=== PATIENT | male | born 1980 | race Caucasian/White ===

== ENCOUNTER 2018-03-10 15:31 | Inpatient (IN) | payer OTHER, SELFPAY ==
[2018-03-10] VITALS (25 sets, daily range): BP systolic 98–222; BP diastolic 63–136; PULSE 71–111; RESP 11–28; TEMP 36–36.7; O2SAT 93–99; BMI 35.2; BMI 35.3; BMI 39.2
[2018-03-10] MEDS: Metoprolol Tartrate 5 MG/5 ML Vial IV ×2 (15:35→15:43)
[2018-03-10] MEDS: Morphine 4 MG/ML Syringe IV (15:36)
[2018-03-10] MEDS: Ondansetron 4 MG/2 ML Vial IV (15:36)
--- NOTE | 2018-03-10 15:40 | RAD_ITS ---
STUDY: X-RAY CHEST REASON FOR EXAM: Male, 37 years old. Chest pain TECHNIQUE: Single AP portable view of the chest. COMPARISON: None. FINDINGS: The lungs are clear and expanded. There is no demonstrated pleural abnormality. Normal size heart. Normal mediastinum and robel. Normal visualized pulmonary arteries. Normal visualized aortic arch and descending thoracic aorta. Normal visualized thoracic spine. Normal visualized ribs, clavicles, and shoulders. There is no demonstrated abnormality of the visualized soft tissue structures of the upper abdomen. RAD/Chest 1 View (Portable) IMPRESSION: Normal x-ray examination of the chest. Electronically Signed: Jaiden Lea DO at 16:10 EDT Tel , Service support ,
[2018-03-10] MEDS: TICAGRELOR 90 MG TABLET 180 MG PO (15:42)
[2018-03-10] MEDS: 0.9% Normal Saline 1,000 ML 999 ML IV (15:50)
[2018-03-10] MEDS: fentaNYL 100 MCG/2 ML Ampul 50 MCG IV (15:52)
[2018-03-10] MEDS: Heparin Injection (Vial) 5,000 UNIT/ML VIAL 5000 UNIT IV (15:52)
[2018-03-10 16:01] LABS: Absolute Lymphocyte Count 4.04 X10^3/ul (0.83-4.51); Basophil# 0.08 X10^3/uL; Basophil% 0.6 % (0-1); Eosinophil# 0.24 X10^3/uL; Eosinophils% 1.9 % (0-5); Hematocrit 46.4 % (40-54); Hemoglobin 16.4 g/dl (13.0-16.5); Lymphocyte # 4.04 X10^3/ul (4.0); Lymphocyte % 31.9 % (19-41); Mean Corp Hgb Conc 35.3 g/gl (32-36); Mean Corpuscular Hgb 31.3 pg (27.0-32.0); Mean Corpuscular Volume 88.5 fL (80-94); Monocyte# 1.33 X10^3/uL; Monocyte% 10.5 % (0-10); Neutrophil # 6.95 X10^3/uL (2.7-7.7); Neutrophil % 54.8 % (47-70); Platelet Count 250 K/mm3 (150-450); RBC Distribution Width CV 12.9 % (11.6-14.6); Red Blood Count 5.24 M/mm3 (4.6-6.2); White Blood Count 12.7 K/mm3 (4.4-11.0)
[2018-03-10 16:03] LABS: POSITIVE COUNT NO; POSITIVE DIFFERENTIAL NO; POSITIVE MORPHOLOGY NO
--- NOTE | 2018-03-10 16:04 | ED.RN ---
Spoke with 1st cousin Chantelle at [phone]. She was going to contact her daughter Chata Spivey and ask her to come to hospital.
[2018-03-10 16:05] LABS: International Normalized Ratio 1.1; Prothrombin Time (Protime)PT. 13.7 SECONDS (11.7-14.9)
[2018-03-10 16:06] LABS: Partial Thromboplast Time 23.8 Seconds (24.1-36.2)
[2018-03-10 16:25] LABS: Anion Gap 10 (5-15); BUN 12 mg/dL (7-18); BUN/Creat Ratio 9.7 RATIO (10-20); Calcium,Total 9.2 mg/dL (8.5-10.1); Chloride 107 mmol/L (98-107); Creatinine, Serum 1.24 mg/dL (0.70-1.30); EST Glomerular Filtration Rate 69 mL/min (>60); Est Glom Filt Rate - Afr Amer 83 mL/min (>60); Estimated Creatinine Clearance 87.79 ml/min; Glucose 213 mg/dL (74-106); Potassium 3.3 mmol/L (3.5-5.1); Sodium Level 139 mmol/L (136-145)
--- NOTE | 2018-03-10 16:26 | ED.VISSUMM ---
- ER Visit Summary Date of Service: 03/10/18 Chief Complaint: Chest pain History of Present Illness: The patient is a 37 M who is arriving via EMS from work with crushing chest pain. Prehospital STEMI was called. Patient has a history of hypertension and smoking. He states both his mom and his dad have had early onset heart disease. Patient notes some shortness of breath and sweating. No vomiting. He has not had any symptoms like this in the past. Physical Examination: Patient is tachycardic and hypertensive. Gen: Well-nourished well-developed Head: Normocephalic atraumatic Eyes: Perrl EOMI ENT: TMs clear no rhinorrhea moist mucous membranes Neck: Supple no lymphadenopathy no JVD nontender CVS: Regular rate and tachycardic no murmurs normal S1-S2 Respiratory: No distress clear to auscultation bilaterally chest nontender Abdomen: Soft nontender nondistended normal bowel sounds no masses Back: Nontender Extremity: Nontender no edema Skin: Ashen and diaphoretic Neuro: alert orientated ?3 CN II-XII intact normal strength sensation reflexes gait cerebellar Psych: Normal affect normal mood Test Results: Prehospital and emergency department EKG is consistent with STEMI in the inferior leads with reciprocal changes. Chest x-ray shows a normal mediastinal Emergency Department Course and Treatment: Patient received aspirin by EMS. He received IV fluids, morphine, Zofran in the emergency department. Patient also received IV metoprolol (10 mg), Brilinta, and heparin. Heart rate has responded down into the 80s. Dr. Novoa has come to the emergency department will be taking the patient to the heart catheterization lab. Impression: 1. Acute inferior lateral myocardial infarction This note was generated with Vastari dictation software. It may contain incorrect words, spelling, and punctuation that were not noted in review of the chart prior to signing ED Disposition - Plan for ED Patient: Disposition: Acute Care Hospital [facility] Chief Complaint: Chest Pain
--- NOTE | 2018-03-10 16:59 | EKG12_ITS ---
Test Reason : POST STEMI Blood Pressure : / mmHG Vent. Rate : 079 BPM Atrial Rate : 079 BPM P-R Int : 190 ms QRS Dur : 100 ms QT Int : 378 ms P-R-T Axes : 049 062 054 degrees QTc Int : 433 ms Normal sinus rhythm Normal ECG When compared with ECG of 10-MAR-2018 17:27, MANUAL COMPARISON REQUIRED, DATA IS UNCONFIRMED Confirmed by POPEYE CHAMBERLAIN, RENAE ([id number]), editorial writer SARAH LAYTON ([id number]) on 03/15/2018 4:00:42 PM Referred By: Billy Novoa Confirmed By:RENAE NYE MD
--- NOTE | 2018-03-10 17:00 | EKG12_ITS ---
Test Reason : POST STEMI Blood Pressure : / mmHG Vent. Rate : 074 BPM Atrial Rate : 074 BPM P-R Int : 188 ms QRS Dur : 102 ms QT Int : 394 ms P-R-T Axes : 049 069 060 degrees QTc Int : 437 ms Normal sinus rhythm Normal ECG When compared with ECG of 10-MAR-2018 15:32, MANUAL COMPARISON REQUIRED, DATA IS UNCONFIRMED Confirmed by POPEYE CHAMBERLAIN, RENAE ([id number]), editorial specialist SARAH LAYTON ([id number]) on 03/15/2018 4:00:55 PM Referred By: Billy Novoa Confirmed By:RENAE NYE MD
--- NOTE | 2018-03-10 17:11 | CON.PCM_ITS ---
Problem List (1) STEMI (ST elevation myocardial infarction) Status: Acute Reason for Consult Date of Consultation: 03/10/18 History of Present Illness: The patient is a 37 year old M with no significant past medical history. He started having anterior chest discomfort radiating to both shoulders and arms this afternoon. EMS was called. An EKG was done in the field. It showed acute inferior ST elevation myocardial infarction. Subsequently a STEMI alert was called. Patient denies any previous cardiac history. No history of angina. No history of CHF. No palpitations. Denies any previous medical history [] Past Medical History Allergies/Adverse Reactions: Allergies No Known Allergies Allergy (Verified 03/10/18 15:33) Smoking Status: Current every day smoker Review of Systems - Review of Systems General: Denies: Fever, Chills HEENT: Denies: Head Aches Cardiovascular: Reports: Chest Discomfort at Rest - As noted in history of presenting illness. Denies: Orthopnea, PND, Peripheral Edema Respiratory: Denies: Cough, Hemoptysis Gastrointestinal: Denies: Abdominal Discomfort, Jaundice, Hematemesis Neurological: Denies: History of TIA, History of CVA Endocrine: Denies: Heat Intolerance, Cold Intolerance Hematologic/ Lymphatic: Denies: Easy Brusing, Easy Bleeding Subjectve: Appeared anxious. Diaphoretic. In acute distress Objective: Vital Signs Temp Pulse Resp BP Pulse Ox 96.8 F L 87 26 H 200/125 H 99 03/10/18 15:33 03/10/18 15:45 03/10/18 15:45 03/10/18 15:45 03/10/18 15:45 General: Alert, Oriented x 3, Ill Appearing, In Acute Distress, Obese HEENT: Atraumatic, Normocephalic Oral: Moist Mucosa Neck: - - Unable to visualize jugular venous pulse because of body habitus Lungs: Clear to auscultation Cardiovascular: Regular Rhythm, Normal S1, Normal S2 Abdomen: Bowel Sounds Present, Soft Extremities: No edema Neurological: No Focal Motor or Sensory Deficit Psych/Mental Status: Anxious Rhythm: Normal sinus rhythm. EKG: EKG done in the field and then repeated in the emergency room showed changes consistent with acute inferior myocardial infarction with possible posterior extension Assessment/Plan 1. Acute inferior posterior myocardial infarction. Patient was advised emergent coronary angiography and possible revascularization. After obtaining informed consent, patient was brought to the cardiac catheterization lab. Coronary angiography revealed totally occluded mid right posterior lateral ventricular branch. Successful percutaneous revascularization was performed with balloon angioplasty followed by stent placement with a 2.5 x 16 mm Synergy drug-eluting stent. Excellent results were noted with buddhist of ANJALI-3 flow. 0% residual stenosis 2. Continue aspirin lifelong. Ticagrelor treatment for at least one year. Start on beta blockers. Check lipid profile. Start on statins 3. Patient has severe disease in his mid left circumflex and first obtuse marginal branch. Small arteries. Recommend medical management. Patient also has about 60% mid LAD lesion. Recommend outpatient physiological testing with a stress test with imaging modality 4. Normal LV systolic function 5. Lose weight. Patient was counseled 6. Nicotine dependence. Counseled to quit. He however does not seem motivated to do that 7. Medical management as per internal medicine
[2018-03-10] MEDS: 0.9% Normal Saline 1,000 ML 150 ML IV (17:30)
[2018-03-10 17:31] LABS: ACT Activated Clotting Time 285 sec (74-137)
[2018-03-10 17:31] LABS: ACT Activated Clotting Time 290 sec (74-137)
--- NOTE | 2018-03-10 17:31 | CL.I_ITS ---
Patient Name: LAKSHMI GRAHAM Study Date: 03/10/2018 Performing: Billy Novoa MD Ht: 72 inches 183 cm : 1980 Wt: 260.5 lbs 118 kg Age: 37 Gender: male BSA: 2.38 PROCEDURE(S) PERFORMED [id number]/COR/LV [id number], FAYE AND/OR PTCA, ARTERY OR GRAFT, SINGLE VESSEL CLINICAL PROFILE AND CO-MORBIDITIES Heart Failure: None CAD Presentations: STEMI. Symptom onset Date/Time: 03/10/2018 14:25:00 Time Estimated CONCLUSIONS 100% Mid PRLV 50% Prox RCA, 60% distal 60% Mid LAD 80% Mid LCX, 95% Prox OM1. Small vessels LVEF 55% Successful PTCA/FAYE of Mid RPLV using Synergy 2.5x18 mm RECOMMENDATIONS ASA Indefinitley Brilinta for at least 12 months Risk factor modification DESCRIPTION OF PROCEDURE The patient arrived to the procedure lab. The risks and benefits of the procedure as well as a full d escription of our services here and lack of surgical backup were fully explained to the patient and/o r their significant other prior to the catheterization. The Timeout was completed, verifying the mj ect patient and procedure. The patient's procedural site was prepped and draped in the usual fashion. Local anesthetic was given subcutaneously to right radial region with Lidocaine 2%. Using a modified Seldinger technique, arterial access was obtained via the right radial artery, a 6Fr sheath was inse rted.. Right Coronary Artery selective angiography was then performed in multiple views using a 5 Fr . 4.0 [place] catheter. Left Coronary Artery selective angiography was performed in multiple views usin g a 5 Fr. 4.0 [place] catheter. Left Ventriculography was performed in ARRIETA projection using a 5 Fr. Pig tail catheter. LV to AO pullback pressures were then recorded Angiogram performed pre balloon dilatation. Lucky Oysteris 6 fr jr 4 Guide catheter was inserted and engaged into the RCA. runthrough Guide wire was advanced to the RPL. Balloon catheter was advanced across le shirlene in the posterior descending, mid. PTCA balloon inflated at 10 atms for 15 secs. PTCA balloon inf lated at 12 atms for 16 secs. Angiogram performed post balloon dilatation. choice extra support Guide wire was inserted as a karla wire synergy 2.5 x 16 Drug Eluting stent was advanced across the lesion in the post lateral mid on runthrough wire Angiogram performed pre stent deployment. Angiogram perf ormed post stent deployment. nc emerge 2.50 x 15 Balloon catheter was inserted post stent. Angiogram performed post balloon dilatation. The arterial sheath was pulled and a TR Band was applied for hem ostasis CORONARY ANGIOGRAPHY DOMINANCE: Right Dominant LEFT HEART ASSESSMENT Left Ventricular Ejection Fraction: by LV Gram 55 % LVEDP: 20 mmHg Posterior Basal Hypokinesis - Severe LEFT MAIN: No significant disease LEFT ANTERIOR DECENDING ARTERY: 60% Mid LAD CIRCUMFLEX ARTERY: 80% Mid, 95% Prox OM1. Small vessels RIGHT CORONARY ARTERY: 50% Prox, 60% distal. 100% Mid RPLV INTERVENTION INFORMATION LESION SITE: RPL (1st) Lesion Complexity: High/C, thrombus present: Yes, culprit lesion: Yes Pre Stenosis: 100 % Pre intervention ANJALI flow: 0 PROCEDURE: Drug Eluting Stent with pre and post dilatation Post Stenosis: 0 % Post intervention ANJALI flow: 3 Lesion Devices: Gregory Sci EMERGE MR 2.50x20 BALLOON Gregory Sci Synergy MR FAYE 2.50x16 Gregory Sci EMERGE MR 2.50x12 BALLOON Gregory Sci .014 Choice Xtra Support wire 182cm Gregory Sci NC EMERGE MR 2.50x15 BALLOON COMPLICATIONS No Complications PROCEDURE MEDICATIONS Fentanyl 50 mcg IV Versed 2 mg IV Fentanyl 50 mcg IV Fentanyl 50 mcg IV Oxygen: 2 L/min via nasal cannula Angiomax Bolus 18 ml's 03/10/2018 16:20:32 Angiomax 5mg / ml 42 ml/hr IV started 03/10/2018 16:23:18 Nitro 200 mcg IC 03/10/2018 16:45:18 Verapamil 2.5mg, Ntg 100mcgs, given IA 03/10/2018 16:15:17 SUMMARY OF HEMODYNAMIC DATA Time AIR REST ECG 16:07:36 AO 197/101 (141) SA 16:16:41 LV 136/15, 26 16:49:52 LVp 144/11, 28 16:51:02 AOp 143/89 (113) 16:51:07 Signed By Billy Novoa MD On 03/10/2018 17:31:10 Billy Novoa MD
--- NOTE | 2018-03-10 17:39 | PCM.HP.STD ---
Problem List (1) Morbid obesity Status: Acute (2) Nicotine dependence Status: Chronic Qualifiers: Nicotine product type: cigarettes (3) STEMI (ST elevation myocardial infarction) Status: Chronic Qualifiers: Involved coronary artery: other anterior wall coronary artery Qualified Code(s): I21.09 - ST elevation (STEMI) myocardial infarction involving other coronary artery of anterior wall History of Present Illness Date of Admission: 03/10/18 Chief Complaint: Chest pain - 1 day The patient is a 37 year old M with morbid obesity, chronic smoker, otherwise with no significant past medical history comes in with complaints of anterior chest discomfort that radiated to both shoulders and arms. Patient was at work when he started having sudden onset of sharp heavy chest pain, not associated with diaphoresis or nausea or vomiting or dizziness or palpitations. EMS was called, and patient was found to be diaphoretic and complaining of chest pain. EKG in the field showed acute inferior ST elevation AL and a STEMI alert was called Findings in the cardiac cath showed 100% mid right posterior lateral ventricular branch, status post drug-eluting stent 50% proximal RCA, 60% distal RCA, 60% mid LAD, 80% mid left circumflex, 95% proximal obtuse margin, small vessels Past Medical History Past Medical History (Chronic Problems): Chronic Problems STEMI (ST elevation myocardial infarction) (Chronic) Nicotine dependence (Chronic) Allergies No Known Allergies Allergy (Verified 03/10/18 15:33) Surgical History: no surgical history Psychiatric History: No pertinent psych hx Lives: With Family Smoking Status: Heavy Smoker (>10/day) Tobacco Use: Cigarettes Alcohol: Occasional Drugs: None - *Family History Maternal History Items: Heart Disease - young age Paternal History Items: Heart Disease - young age Review of Systems Constitutional: Denies: Anorexia, Chills, Fever, Malaise, Weakness, Weight Change Eyes: Denies: Blurred vision, Cataracts, Conjunctivae Inflammation, Pain, Redness HEENT: Denies: Difficulty Hearing, Difficulty Swallowing, Head Aches, Hearing Changes, Nasal bleeding, Nasal Congestion, Sinus Congestion, Sinus Drainage, Sore Throat, Visual Changes Cardiovascular: Reports: Chest Pain, Chest Pressure, Chest Tightness, Heaviness. Denies: Light Headedness, Orthopnea, Palpitations, Paroxysmal Noc. Dyspnea, Syncope Respiratory: Reports: Shortness of Breath, Shortness of breath at rest, Shortness of breath upon exertion. Denies: Cough, Hemoptysis, Pleuritic Pain, Sputum production Gastrointestinal: Denies: Abdominal Pain, Constipation, Hematemesis, Hematochezia, Nausea, Vomiting Genitourinary: Denies: Dysuria, Frequency, Incontinence Musculoskeletal: Denies: Arm Pain, Back Pain, Joint Pain, Joint stiffness, Joint swelling, Joint Tenderness Skin: Denies: Dryness, Rash, Wounds Neurological: Denies: Balance problems, Difficulty swallowing, Focal weakness, Numbness, Tingling Psychiatric: Denies: Anxiety, Depression, Homicidal Ideations, Suicidal Ideations Hematologic/ Lymphatic: Denies: Easy Bruising, Easy Bleeding VTE Information - Inpt Only VTE Present on Admission: No VTE Pharm Prophylaxis ordered?: Yes Patient Problems: Active and Suspected Problems Morbid obesity (Acute) - Physical Exam General: Alert, Oriented x3, Cooperative, - - in pain at the time of being examined, morbidly obese HEENT: Atraumatic, PERRLA, EOMI, Normocephalic Oral: Moist Mucosa Neck: Supple Lungs: Clear to auscultation, Normal air movement Cardiovascular: Regular rate, Regular Rhythm, Normal S1, Normal S2, No murmurs Abdomen: Bowel Sounds Present, Soft, Non Tender, Non-Distended, No Hepato-splenomegaly Extremities: No edema Skin: No rashes, No breakdown Musculoskeletal: No Tenderness to Palpation of Joints or Extremities Lymphatic: No Cervical, Supraclavicular, or Inguinal Adenopathy Neurological: Cranial nerves II-XII grossly intact, Neuro grossly intact Psych/Mental Status: Normal Affect, Appropriate Vital Signs Temp Pulse Resp BP Pulse Ox 97.4 F L 75 15 140/79 H 99 03/10/18 17:30 03/10/18 17:30 03/10/18 17:30 03/10/18 17:30 03/10/18 17:30 Oxygen Delivery Method Room Air Laboratory Tests Past 24 Hrs 03/10/18 03/10/18 16:48 16:55 Activated Clotting Time 290 H 285 H Assessment/Plan All Active Problems Morbid obesity (Acute) 37 year old M with morbid obesity, chronic smoker, otherwise with no significant past medical history comes in with complaints of anterior chest discomfort that radiated to both shoulders and arms. 1. Acute STEMI, ANJALI score 2(HR more than 100), s/p cardiac cath, Findings in the cardiac cath showed 100% mid right posterior lateral ventricular branch, status post drug-eluting stent, 50% proximal RCA, 60% distal RCA, 60% mid LAD, 80% mid left circumflex, 95% proximal obtuse margin, small vessels Plan: Admit to ICU, monitor on telemetry bed, continue on aspirin, statin, carvedilol, Imdur, Brilinta. 2. Hypertensive emergency,admitting blood pressure of 212/136, will be started on nitro drip per cardiology, will titrate to symptom and also to blood pressure, be started on carvedilol and Imdur, will monitor blood pressure closely 3. Nicotine dependence, will start on nicotine patch and gum as needed 4. Morbid obesity, BMI 39.2, diet and exercise recommended 5. DVT prophylaxis with heparin subcu 6. GI ppx - famotidine bid Code Visit Inpatient E&M: 99862 Init Hosp L3
--- NOTE | 2018-03-10 17:45 | HP.PCM_ITS ---
Problem List (1) Morbid obesity Status: Acute (2) Nicotine dependence Status: Chronic Qualifiers: Nicotine product type: cigarettes (3) STEMI (ST elevation myocardial infarction) Status: Chronic Qualifiers: Involved coronary artery: other anterior wall coronary artery Qualified Code(s): I21.09 - ST elevation (STEMI) myocardial infarction involving other coronary artery of anterior wall History of Present Illness Date of Admission: 03/10/18 Chief Complaint: Chest pain - 1 day The patient is a 37 year old M with morbid obesity, chronic smoker, otherwise with no significant past medical history comes in with complaints of anterior chest discomfort that radiated to both shoulders and arms. Patient was at work when he started having sudden onset of sharp heavy chest pain, not associated with diaphoresis or nausea or vomiting or dizziness or palpitations. EMS was called, and patient was found to be diaphoretic and complaining of chest pain. EKG in the field showed acute inferior ST elevation [place] and a STEMI alert was called Findings in the cardiac cath showed 100% mid right posterior lateral ventricular branch, status post drug-eluting stent 50% proximal RCA, 60% distal RCA, 60% mid LAD, 80% mid left circumflex, 95% proximal obtuse margin, small vessels Past Medical History Past Medical History (Chronic Problems): Chronic Problems STEMI (ST elevation myocardial infarction) (Chronic) Nicotine dependence (Chronic) Allergies No Known Allergies Allergy (Verified 03/10/18 15:33) Surgical History: no surgical history Psychiatric History: No pertinent psych hx Lives: With Family Smoking Status: Heavy Smoker (>10/day) Tobacco Use: Cigarettes Alcohol: Occasional Drugs: None - *Family History Maternal History Items: Heart Disease - young age Paternal History Items: Heart Disease - young age Review of Systems Constitutional: Denies: Anorexia, Chills, Fever, Malaise, Weakness, Weight Change Eyes: Denies: Blurred vision, Cataracts, Conjunctivae Inflammation, Pain, Redness HEENT: Denies: Difficulty Hearing, Difficulty Swallowing, Head Aches, Hearing Changes, Nasal bleeding, Nasal Congestion, Sinus Congestion, Sinus Drainage, Sore Throat, Visual Changes Cardiovascular: Reports: Chest Pain, Chest Pressure, Chest Tightness, Heaviness. Denies: Light Headedness, Orthopnea, Palpitations, Paroxysmal Noc. Dyspnea, Syncope Respiratory: Reports: Shortness of Breath, Shortness of breath at rest, Shortness of breath upon exertion. Denies: Cough, Hemoptysis, Pleuritic Pain, Sputum production Gastrointestinal: Denies: Abdominal Pain, Constipation, Hematemesis, Hematochezia, Nausea, Vomiting Genitourinary: Denies: Dysuria, Frequency, Incontinence Musculoskeletal: Denies: Arm Pain, Back Pain, Joint Pain, Joint stiffness, Joint swelling, Joint Tenderness Skin: Denies: Dryness, Rash, Wounds Neurological: Denies: Balance problems, Difficulty swallowing, Focal weakness, Numbness, Tingling Psychiatric: Denies: Anxiety, Depression, Homicidal Ideations, Suicidal Ideations Hematologic/ Lymphatic: Denies: Easy Bruising, Easy Bleeding VTE Information - Inpt Only VTE Present on Admission: No VTE Pharm Prophylaxis ordered?: Yes Patient Problems: Active and Suspected Problems Morbid obesity (Acute) - Physical Exam General: Alert, Oriented x3, Cooperative, - - in pain at the time of being examined, morbidly obese HEENT: Atraumatic, PERRLA, EOMI, Normocephalic Oral: Moist Mucosa Neck: Supple Lungs: Clear to auscultation, Normal air movement Cardiovascular: Regular rate, Regular Rhythm, Normal S1, Normal S2, No murmurs Abdomen: Bowel Sounds Present, Soft, Non Tender, Non-Distended, No Hepato- splenomegaly Extremities: No edema Skin: No rashes, No breakdown Musculoskeletal: No Tenderness to Palpation of Joints or Extremities Lymphatic: No Cervical, Supraclavicular, or Inguinal Adenopathy Neurological: Cranial nerves II-XII grossly intact, Neuro grossly intact Psych/Mental Status: Normal Affect, Appropriate Vital Signs Temp Pulse Resp BP Pulse Ox 97.4 F L 75 15 140/79 H 99 03/10/18 17:30 03/10/18 17:30 03/10/18 17:30 03/10/18 17:30 03/10/18 17:30 Oxygen Delivery Method Room Air Laboratory Tests Past 24 Hrs 03/10/18 03/10/18 16:48 16:55 Activated Clotting Time 290 H 285 H Assessment/Plan All Active Problems Morbid obesity (Acute) 37 year old M with morbid obesity, chronic smoker, otherwise with no significant past medical history comes in with complaints of anterior chest discomfort that radiated to both shoulders and arms. 1. Acute STEMI, ANJALI score 2(HR more than 100), s/p cardiac cath, Findings in the cardiac cath showed 100% mid right posterior lateral ventricular branch, status post drug-eluting stent, 50% proximal RCA, 60% distal RCA, 60% mid LAD, 80% mid left circumflex, 95% proximal obtuse margin, small vessels Plan: Admit to ICU, monitor on telemetry bed, continue on aspirin, statin, carvedilol, Imdur, Brilinta. 2. Hypertensive emergency,admitting blood pressure of 212/136, will be started on nitro drip per cardiology, will titrate to symptom and also to blood pressure , be started on carvedilol and Imdur, will monitor blood pressure closely 3. Nicotine dependence, will start on nicotine patch and gum as needed 4. Morbid obesity, BMI 39.2, diet and exercise recommended 5. DVT prophylaxis with heparin subcu 6. GI ppx - famotidine bid Code Visit Inpatient E&M: 59627 Init Hosp L3
--- NOTE | 2018-03-10 18:45 | EKG12_ITS ---
Test Reason : STEMI Blood Pressure : / mmHG Vent. Rate : 113 BPM Atrial Rate : 113 BPM P-R Int : 166 ms QRS Dur : 098 ms QT Int : 344 ms P-R-T Axes : 065 069 081 degrees QTc Int : 471 ms Sinus tachycardia Septal infarct , age undetermined Inferolateral injury pattern ACUTE TX / STEMI Abnormal ECG Confirmed by DELFINO CHAMBERLAIN, SOHA ([id number]), pictures editor SARAH LAYTON ([id number]) on 03/22/2018 2:20:19 PM Referred By: Billy Novoa Confirmed By:SOHA SALEH MD
[2018-03-10] MEDS: Famotidine 20mg IV Push Syringe Q12 300 MG IVP (21:41)
[2018-03-10] MEDS: 0.9% NaCl Peripheral Flush Adult/Peds IV (21:41)
[2018-03-10] MEDS: TICAGRELOR 90 MG TABLET PO (21:43)
[2018-03-10] MEDS: Atorvastatin Calcium 40 MG Tablet PO (21:44)
[2018-03-10] MEDS: Carvedilol 3.125 MG TABLET PO (21:44)
[2018-03-11] VITALS (23 sets, daily range): BP systolic 112–151; BP diastolic 68–99; PULSE 66–76; RESP 10–23; TEMP 36.4–36.8; O2SAT 93–98
[2018-03-11 05:10] LABS: Hematocrit 41.8 % (40-54); Hemoglobin 14.2 g/dl (13.0-16.5); Mean Corpuscular Hgb 30.9 pg (27.0-32.0); Mean Corpuscular Volume 91.1 fL (80-94); Mean Platelet Vol. 10.8 fl (6.2-12.0); Platelet Count 192 K/mm3 (150-450); RBC Distribution Width SD 42.5 fl (35.1-43.9); Red Blood Count 4.59 M/mm3 (4.6-6.2); White Blood Count 12.7 K/mm3 (4.4-11.0)
[2018-03-11 05:11] LABS: Scan Indicated on CBC? Y/N NO
[2018-03-11 05:38] LABS: ALB/GLOB Ratio 1.1 RATIO (0.9-2.4); AST(SGOT) 160 U/L (15-37); Alanine Aminotransfer ALT/SGPT 54 U/L (16-61); Albumin, Serum 3.3 g/dL (3.2-5.0); Alkaline Phosphatase 96 U/L (45-117); Anion Gap 9 (5-15); BUN 10 mg/dL (7-18); BUN/Creat Ratio 11.4 RATIO (10-20); Calcium,Total 8.1 mg/dL (8.5-10.1); Chloride 110 mmol/L (98-107); Cholesterol 211 mg/dL (200); Creatinine, Serum 0.88 mg/dL (0.70-1.30); EST Glomerular Filtration Rate 103 mL/min (>60); Est Glom Filt Rate - Afr Amer 124 mL/min (>60); Estimated Creatinine Clearance 109.03 ml/min; Globulin 3.1 g/dL (2.2-4.2); Glucose 103 mg/dL (74-106); High Density Lipoprotein 30 mg/dL; Potassium 3.9 mmol/L (3.5-5.1); Protein, Total 6.4 g/dL (6.4-8.2); Sodium Level 142 mmol/L (136-145); Triglycerides 132 mg/dL; Very Low Density Lipoprotein 26 mg/dL (5-40)
[2018-03-11] MEDS: Isosorbide Mononitrate 30 MG Tablet PO (06:30)
--- NOTE | 2018-03-11 07:29 | PCM.PN.HOSP ---
Patient Problems: Active and Suspected Problems Morbid obesity (Acute) Subjective: Patient was seen and examined. No new complaints. Managed on nitro drip which was switched over 6 AM. Blood pressure is better. Patient is chest pain-free. Denies any dizziness or shortness of breath or palpitations orthopnea or PND. Objective: Physical Exam General: Alert, Oriented x3, Cooperative, morbidly obese HEENT: Atraumatic, PERRLA, EOMI, Normocephalic Oral: Moist Mucosa Neck: Supple Lungs: Clear to auscultation, Normal air movement Cardiovascular: Regular rate, Regular Rhythm, Normal S1, Normal S2, No murmurs Abdomen: Bowel Sounds Present, Soft, Non Tender, Non-Distended, No Hepato-splenomegaly Extremities: No edema Skin: No rashes, No breakdown Musculoskeletal: No Tenderness to Palpation of Joints or Extremities Lymphatic: No Cervical, Supraclavicular, or Inguinal Adenopathy Neurological: Cranial nerves II-XII grossly intact, Neuro grossly intact Psych/Mental Status: Normal Affect, Appropriate Vitals/I&O's: Vital Signs Temp Pulse Resp BP Pulse Ox 98.2 F 73 13 114/73 93 03/11/18 04:00 03/11/18 06:00 03/11/18 06:00 03/11/18 06:00 03/11/18 06:00 Oxygen Delivery Method Room Air Weight: 115.9 kg Body Mass Index (BMI) 39.2 Intake and Output for Last 24 Hours 03/09/18 03/10/18 03/11/18 23:59 23:59 23:59 Intake Total 240 / 240 1322 / 1322 Output Total 650 / 650 700 / 700 Balance -410 / -410 622 / 622 Laboratory Results 03/10/18 16:48: Activated Clotting Time 290 H 03/10/18 16:55: Activated Clotting Time 285 H 03/11/18 04:45: WBC 12.7 H, RBC 4.59 L, Hgb 14.2, Hct 41.8, MCV 91.1, MCH 30.9, MCHC 34.0, RDW 13.0, RDW Differential 42.5, Plt Count 192, MPV 10.8 03/11/18 04:45: Sodium 142, Potassium 3.9, Chloride 110 H, Carbon Dioxide 23.0, Anion Gap 9, BUN 10, Creatinine 0.88, Estim Creat Clear Calc 109.03, Est GFR (MDRD) Af Amer 124, Est GFR (MDRD) Non-Af 103, BUN/Creatinine Ratio 11.4, Glucose 103, Calcium 8.1 L, Total Bilirubin 0.50, AST 160 H, ALT 54, Alkaline Phosphatase 96, Troponin I 34.400 H*, Total Protein 6.4, Albumin 3.3, Globulin 3.1, Albumin/Globulin Ratio 1.1, Triglycerides 132, Cholesterol 211 H, LDL Cholesterol 155 H, VLDL Cholesterol 26, HDL Cholesterol 30 L Current Medications Aspirin (Ecotrin) 81 mg PO DAILY@0800 [facility] Atorvastatin Calcium (Lipitor) 40 mg PO QHS [facility] Last Admin: 03/10/18 21:44 Dose: 40 mg Atropine Sulfate () 0.5 mg IV UD PRN PRN Reason: HR <50 bpm Bisacodyl (Dulcolax) 5 mg PO DAILY PRN PRN PRN Reason: Constipation Carvedilol (Coreg) 3.125 mg PO BID [facility] Last Admin: 03/10/18 21:44 Dose: 3.125 mg Fentanyl Citrate (Sublimaze (100mcg Ampule)) 50 mcg IV Q4H PRN PRN PRN Reason: PAIN Heparin Sodium (Porcine) (Heparin Na) 5,000 unit SC Q12 [facility] Hydralazine HCl (Apresoline Iv) 5 mg IV Q6H PRN PRN PRN Reason: BLOOD PRESSURE Nitroglycerin/Dextrose 25 mg/ (N/A) 250 mls @ 3 mls/hr IV .[id number] [facility] PRN Reason: 5 MCG/MIN Last Admin: 03/10/18 18:43 Dose: 3 mls/hr Famotidine 20 mg/ Sodium (Chloride) 10 mls @ 300 mls/hr IVP Q12 [facility] Last Admin: 03/10/18 21:41 Dose: 300 mls/hr Isosorbide Mononitrate (Imdur) 30 mg PO DAILY [facility] Magnesium Hydroxide (Milk Of Magnesia) 30 ml PO DAILY PRN PRN PRN Reason: Constipation Nicotine (Nicoderm Cq (Pbkc)) 14 mg TRANSDERM. DAILY [facility] Nicotine Polacrilex (Rugby Nicotine (Bkc)) 2 mg PO Q2H PRN PRN PRN Reason: Nicotine Craving Psyllium Hydrophilic Mucilloid (Metamucil) 1 packet PO DAILY PRN PRN PRN Reason: CONSTIPATION Sodium Chloride () 5 - 30 ml IV UD PRN PRN Reason: SALINE FLUSH Last Admin: 03/10/18 21:41 Dose: 10 ml Sodium Chloride () 500 ml IV BOLUS PRN PRN Reason: VASO-VAGAL PROTOCOL Ticagrelor (Brilinta) 90 mg PO BID [facility] Last Admin: 03/10/18 21:43 Dose: 90 mg Medical Necessity - Tobacco Use Smoking Status: Heavy Smoker (>10/day) Tobacco Use: Cigarettes Assessment/Plan All Active Problems Morbid obesity (Acute) 37 year old M with morbid obesity, chronic smoker, hypertension but not on medications comes in with complaints of anterior chest discomfort that radiated to both shoulders and arms, associated with diaphoresis. 1. Acute STEMI, ANJALI score 2 (HR more than 100), s/p cardiac cath, Findings in the cardiac cath showed 100% mid right posterior lateral ventricular branch, status post drug-eluting stent, 50% proximal RCA, 60% distal RCA, 60% mid LAD, 80% mid left circumflex, 95% proximal obtuse margin, small vessels Patient is stable, asymptomatic, off nitro drip, on oral medications, will transfer out of the ICU to a telemetry bed, continue on aspirin, statin, carvedilol, Imdur, Brilinta. 2. Hypertensive emergency,admitting blood pressure of 212/136, improved, off nitro drip, blood pressure is better, continue on carvedilol, Imdur with as needed hydralazine 3. Nicotine dependence, on nicotine patch and gum as needed 4. Morbid obesity, BMI 39.2, diet and exercise recommended 5. DVT prophylaxis with heparin subcu 6. Disposition: Transferred to PCU, possible discharge in 24-48 hours. Code Visit Inpatient E&M: 57359 Subs Hosp L2
[2018-03-11] MEDS: Aspirin E.C. 81 MG Tablet PO (08:28)
--- NOTE | 2018-03-11 08:34 | PCM.PN.CARD ---
Subjectve: Patient seen and evaluated. Appears to be doing well this morning with no chest pain Objective: Vital Signs Temp Pulse Resp BP Pulse Ox 98.2 F 67 17 126/85 H 95 03/11/18 04:00 03/11/18 07:23 03/11/18 07:00 03/11/18 07:00 03/11/18 07:25 Oxygen Delivery Method Room Air Weight: 255 lb 8.252 oz Body Mass Index (BMI) 39.2 Intake and Output for Last 24 Hours 03/09/18 03/10/18 03/11/18 23:59 23:59 23:59 Intake Total 240 / 240 1322 / 1322 Output Total 650 / 650 700 / 700 Balance -410 / -410 622 / 622 General: Awake, Alert, Oriented x 3 HEENT: PERRL, EOMI, Sclera Non Icteric Neck: Supple, Good ROM, No Lymph Node Enlargement Lungs: Clear to auscultation Cardiovascular: Regular Rhythm, Normal S1, Normal S2, No Murmurs, No Rubs, No Gallops Vascular: No Carotid Bruits, Normal Femoral Pulses, Normal Radial Pulses, Normal Dorsalis Pedal Pulse, Normal Posterior Tibial Pulses Abdomen: Bowel Sounds Present, Soft, Non Tender, No HSM, No Organomegaly Extremities: No Cyanosis, No Clubbing, No edema Neurological: No Focal Motor or Sensory Deficit 03/11/18 04:45: WBC 12.7 H, RBC 4.59 L, Hgb 14.2, Hct 41.8, MCV 91.1, MCH 30.9, MCHC 34.0, RDW 13.0, RDW Differential 42.5, Plt Count 192, MPV 10.8 03/11/18 04:45: Sodium 142, Potassium 3.9, Chloride 110 H, Carbon Dioxide 23.0, Anion Gap 9, BUN 10, Creatinine 0.88, Est GFR (MDRD) Af Amer 124, Est GFR (MDRD) Non-Af 103, BUN/Creatinine Ratio 11.4, Glucose 103, Calcium 8.1 L, Total Bilirubin 0.50, Troponin I 34.400 H*, Triglycerides 132, Cholesterol 211 H, LDL Cholesterol 155 H, VLDL Cholesterol 26, HDL Cholesterol 30 L Rhythm: EKG: Normal sinus rhythm with no acute changes Medical Necessity - Tobacco Use Smoking Status: Heavy Smoker (>10/day) Tobacco Use: Cigarettes Assessment/Plan 1. Status post acute inferior myocardial infarction The patient presented with an acute inferior myocardial infarction underwent cardiac catheterization which demonstrated a totally occluded posterolateral vessel which was angioplastied and stented with a drug-eluting stent a 2.5 x 16 Synergy stent. Patient has residual disease noted in the circumflex artery which is diffuse of approximately 70% in the obtuse marginal branch. The left anterior descending artery and diagonal branch has mild disease. Patient appears to be doing well at this time and the plan will be to continue him on aspirin Brilinta, statin, beta-domingo and obtain an echocardiogram in a.m. Patient can be transferred to the progressive care unit Cardiac rehabilitation to be instituted Smoking cessation emphasized Hemoglobin has remained stable with no significant fall Creatinine has remained stable with no significant rise Thank you for allowing me to participate in the care of your patient. Please don't hesitate to call if any issues arise
--- NOTE | 2018-03-11 08:37 | PN.CARD_ITS ---
Subjectve: Patient seen and evaluated. Appears to be doing well this morning with no chest pain Objective: Vital Signs Temp Pulse Resp BP Pulse Ox 98.2 F 67 17 126/85 H 95 03/11/18 04:00 03/11/18 07:23 03/11/18 07:00 03/11/18 07:00 03/11/18 07:25 Oxygen Delivery Method Room Air Weight: 255 lb 8.252 oz Body Mass Index (BMI) 39.2 Intake and Output for Last 24 Hours 03/09/18 03/10/18 03/11/18 23:59 23:59 23:59 Intake Total 240 / 240 1322 / 1322 Output Total 650 / 650 700 / 700 Balance -410 / -410 622 / 622 General: Awake, Alert, Oriented x 3 HEENT: PERRL, EOMI, Sclera Non Icteric Neck: Supple, Good ROM, No Lymph Node Enlargement Lungs: Clear to auscultation Cardiovascular: Regular Rhythm, Normal S1, Normal S2, No Murmurs, No Rubs, No Gallops Vascular: No Carotid Bruits, Normal Femoral Pulses, Normal Radial Pulses, Normal Dorsalis Pedal Pulse, Normal Posterior Tibial Pulses Abdomen: Bowel Sounds Present, Soft, Non Tender, No HSM, No Organomegaly Extremities: No Cyanosis, No Clubbing, No edema Neurological: No Focal Motor or Sensory Deficit 03/11/18 04:45: WBC 12.7 H, RBC 4.59 L, Hgb 14.2, Hct 41.8, MCV 91.1, MCH 30.9, MCHC 34.0, RDW 13.0, RDW Differential 42.5, Plt Count 192, MPV 10.8 03/11/18 04:45: Sodium 142, Potassium 3.9, Chloride 110 H, Carbon Dioxide 23.0, Anion Gap 9, BUN 10, Creatinine 0.88, Est GFR (MDRD) Af Amer 124, Est GFR (MDRD ) Non-Af 103, BUN/Creatinine Ratio 11.4, Glucose 103, Calcium 8.1 L, Total Bilirubin 0.50, Troponin I 34.400 H*, Triglycerides 132, Cholesterol 211 H, LDL Cholesterol 155 H, VLDL Cholesterol 26, HDL Cholesterol 30 L Rhythm: EKG: Normal sinus rhythm with no acute changes Medical Necessity - Tobacco Use Smoking Status: Heavy Smoker (>10/day) Tobacco Use: Cigarettes Assessment/Plan 1. Status post acute inferior myocardial infarction The patient presented with an acute inferior myocardial infarction underwent cardiac catheterization which demonstrated a totally occluded posterolateral vessel which was angioplastied and stented with a drug-eluting stent a 2.5 x 16 Synergy stent. Patient has residual disease noted in the circumflex artery which is diffuse of approximately 70% in the obtuse marginal branch. The left anterior descending artery and diagonal branch has mild disease. Patient appears to be doing well at this time and the plan will be to continue him on aspirin Brilinta, statin, beta-domingo and obtain an echocardiogram in a.m. * Patient can be transferred to the progressive care unit * Cardiac rehabilitation to be instituted * Smoking cessation emphasized * Hemoglobin has remained stable with no significant fall * Creatinine has remained stable with no significant rise * * Thank you for allowing me to participate in the care of your patient. Please don't hesitate to call if any issues arise
[2018-03-11] MEDS: Carvedilol 6.25 MG Tablet PO ×2 (09:29→21:40)
[2018-03-11] MEDS: TICAGRELOR 90 MG TABLET PO ×2 (09:30→21:40)
[2018-03-11] MEDS: Heparin Injection (Vial) 5,000 UNIT/ML VIAL 5000 UNIT SC ×2 (09:30→21:40)
--- NOTE | 2018-03-11 10:00 | EKG12_ITS ---
Test Reason : MORNING EKG Blood Pressure : / mmHG Vent. Rate : 071 BPM Atrial Rate : 071 BPM P-R Int : 186 ms QRS Dur : 092 ms QT Int : 402 ms P-R-T Axes : 051 046 064 degrees QTc Int : 436 ms Normal sinus rhythm Normal ECG When compared with ECG of 10-MAR-2018 18:37, MANUAL COMPARISON REQUIRED, DATA IS UNCONFIRMED Confirmed by POPEYE CHAMBERLAIN, RENAE ([id number]), communications editor SARAH LAYTON ([id number]) on 03/15/2018 4:00:22 PM Referred By: Billy Novoa Confirmed By:RENAE NYE MD
--- NOTE | 2018-03-11 17:00 | EKG12_ITS ---
Test Reason : ROUTINE Blood Pressure : / mmHG Vent. Rate : 070 BPM Atrial Rate : 070 BPM P-R Int : 176 ms QRS Dur : 092 ms QT Int : 398 ms P-R-T Axes : 044 047 058 degrees QTc Int : 429 ms Normal sinus rhythm Normal ECG When compared with ECG of 11-MAR-2018 03:26, MANUAL COMPARISON REQUIRED, DATA IS UNCONFIRMED Confirmed by POPEYE CHAMBERLAIN, RENAE ([id number]), order editor SARAH LAYTON ([id number]) on 03/15/2018 3:56:12 PM Referred By: Billy Novoa Confirmed By:RENAE NYE MD
[2018-03-11] MEDS: Atorvastatin Calcium 40 MG Tablet PO (21:40)
--- NOTE | 2018-03-12 00:01 | ECHOCS_ITS ---
Reason For Study: S/P VT Procedure This was a 2D Doppler, Color Flow transthoracic echocardiogram. Exam performed portable in patient room. Left Ventricle Normal LV size. Left ventricular systolic function is lower limits of normal. The estimated ejection fraction is 50 %. No evidence for diastolic dysfunction. Mild segmental systolic dysfunction (see wall motion). Mid-Posterior: Hypokinetic. Right Ventricle Normal RV size. Normal systolic function. Atria Normal left atrium. Normal right atrium. Mitral Valve Normal mitral valve. Tricuspid Valve Normal tricuspid valve. Mild tricuspid valve insufficiency. Pulmonary artery systolic pressure is 18 mmHg. Aortic Valve Normal aortic valve. Trisinus/trileaflet aortic valve. Pulmonic Valve Normal pulmonic valve. Great Vessels Normal aortic root. The pulmonary artery is normal size. Normal inferior vena cava. Pericardium/Pleural No pericardial effusion. Medication Definity0.3ml given slow IV push to enhance endocardial definition. MMode/2D Measurements & Calculations LVIDd: 5.0 cm IVSd: 1.1 cm Ao root diam: 3.5 cm LVIDs: 3.2 cm LVPWd: 0.96 cm RVDd: 4.2 cm FS: 35.6 % LAV(MOD-bp): 38.9 ml LA A4 area: 14.8 cm2 RA A4 area: 12.7 cm2 LAV(MOD-bp) Indexed: 17.3 ml/m2 LAV(MOD-sp2): 43.0 ml LAV(MOD-sp4): 36.2 ml Doppler Measurements & Calculations MV E max mark: 69.9 cm/sec Lat Peak E' Mark: 10.3 cm/sec Med Peak E' Mark: 6.1 cm/sec MV A max mark: 56.3 cm/sec E/E' lat: 6.8 E/E' med: 11.4 MV E/A: 1.2 Ao V2 max: 102.9 cm/sec LV V1 max: 123.0 cm/sec PA V2 max: 87.9 cm/sec Ao max P.2 mmHg LV V1 max P.0 mmHg Ao V2 mean: 81.3 cm/sec Ao mean P.9 mmHg Ao V2 VTI: 21.4 cm TR max mark: 198.1 cm/sec TR max P.7 mmHg Interpretation Summary Normal LV size. Left ventricular systolic function is lower limits of normal. The estimated ejection fraction is 50 %. No evidence for diastolic dysfunction. Mild segmental systolic dysfunction (see wall motion). Ordering Physician: Billy Novoa Referring Physician: Billy Novoa Performed By: Michelle Jackman, DEMARCO, RVT
[2018-03-12 02:00] VITALS: BP 137/84; PULSE 65; RESP 16; TEMP 36.6; O2SAT 96
[2018-03-12 03:24] VITALS: PULSE 69
[2018-03-12 06:51] VITALS: BP 132/84; PULSE 67; RESP 16; TEMP 36.9; O2SAT 95
--- NOTE | 2018-03-12 07:06 | PCM.PN.CARD ---
Subjectve: Patient seen and evaluated and doing well. Objective: Vital Signs Temp Pulse Resp BP Pulse Ox 98.4 F 67 16 132/84 H 95 03/12/18 06:51 03/12/18 06:51 03/12/18 06:51 03/12/18 06:51 03/12/18 06:51 Oxygen Delivery Method Room Air Weight: 251 lb 5.231 oz Body Mass Index (BMI) 39.2 Intake and Output for Last 24 Hours 03/10/18 03/11/18 03/12/18 23:59 23:59 23:59 Intake Total 240 / 240 2102 / 2102 Output Total 650 / 650 700 / 700 Balance -410 / -410 1402 / 1402 General: Awake, Alert, Oriented x 3 HEENT: PERRL, EOMI, Sclera Non Icteric Neck: Supple, Good ROM, No Lymph Node Enlargement Lungs: Clear to auscultation Cardiovascular: Regular Rhythm, Normal S1, Normal S2, No Murmurs, No Rubs, No Gallops Vascular: No Carotid Bruits, Normal Femoral Pulses, Normal Radial Pulses, Normal Dorsalis Pedal Pulse, Normal Posterior Tibial Pulses Abdomen: Bowel Sounds Present, Soft, Non Tender, No HSM, No Organomegaly Extremities: No Cyanosis, No Clubbing, No edema Neurological: No Focal Motor or Sensory Deficit Rhythm: EKG: ECHO: Stress Test: Cardiac Cath: PCI: CT Surgery: Holter monitor: EPS: PPM: CXR: Chest CT Scan: Medical Necessity - Tobacco Use Smoking Status: Heavy Smoker (>10/day) Tobacco Use: Cigarettes Assessment/Plan 1. Status post acute inferior myocardial infarction day 3 The patient presented with an acute inferior myocardial infarction underwent cardiac catheterization which demonstrated a totally occluded posterolateral vessel which was angioplastied and stented with a drug-eluting stent a 2.5 x 16 Synergy stent. Patient has residual disease noted in the circumflex artery which is diffuse of approximately 70% in the obtuse marginal branch. The left anterior descending artery and diagonal branch has mild disease. Patient appears to be doing well at this time and the plan will be to continue him on aspirin Brilinta, statin, beta-domingo and obtain an echocardiogram in a.m. Cardiac rehabilitation to be instituted Smoking cessation emphasized Hemoglobin has remained stable with no significant fall Creatinine has remained stable with no significant rise Patient can be discharged later today after echocardiogram and follow-up with me in the office.Above discussed with patient. Thank you for allowing me to participate in the care of your patient. Please don't hesitate to call if any issues arise
[2018-03-12 07:08] VITALS: PULSE 58
--- NOTE | 2018-03-12 07:09 | PN.CARD_ITS ---
Subjectve: Patient seen and evaluated and doing well. Objective: Vital Signs Temp Pulse Resp BP Pulse Ox 98.4 F 67 16 132/84 H 95 03/12/18 06:51 03/12/18 06:51 03/12/18 06:51 03/12/18 06:51 03/12/18 06:51 Oxygen Delivery Method Room Air Weight: 251 lb 5.231 oz Body Mass Index (BMI) 39.2 Intake and Output for Last 24 Hours 03/10/18 03/11/18 03/12/18 23:59 23:59 23:59 Intake Total 240 / 240 2102 / 2102 Output Total 650 / 650 700 / 700 Balance -410 / -410 1402 / 1402 General: Awake, Alert, Oriented x 3 HEENT: PERRL, EOMI, Sclera Non Icteric Neck: Supple, Good ROM, No Lymph Node Enlargement Lungs: Clear to auscultation Cardiovascular: Regular Rhythm, Normal S1, Normal S2, No Murmurs, No Rubs, No Gallops Vascular: No Carotid Bruits, Normal Femoral Pulses, Normal Radial Pulses, Normal Dorsalis Pedal Pulse, Normal Posterior Tibial Pulses Abdomen: Bowel Sounds Present, Soft, Non Tender, No HSM, No Organomegaly Extremities: No Cyanosis, No Clubbing, No edema Neurological: No Focal Motor or Sensory Deficit Rhythm: EKG: ECHO: Stress Test: Cardiac Cath: PCI: CT Surgery: Holter monitor: EPS: PPM: CXR: Chest CT Scan: Medical Necessity - Tobacco Use Smoking Status: Heavy Smoker (>10/day) Tobacco Use: Cigarettes Assessment/Plan 1. Status post acute inferior myocardial infarction day 3 The patient presented with an acute inferior myocardial infarction underwent cardiac catheterization which demonstrated a totally occluded posterolateral vessel which was angioplastied and stented with a drug-eluting stent a 2.5 x 16 Synergy stent. Patient has residual disease noted in the circumflex artery which is diffuse of approximately 70% in the obtuse marginal branch. The left anterior descending artery and diagonal branch has mild disease. Patient appears to be doing well at this time and the plan will be to continue him on aspirin Brilinta, statin, beta-domingo and obtain an echocardiogram in a.m. * Cardiac rehabilitation to be instituted * Smoking cessation emphasized * Hemoglobin has remained stable with no significant fall * Creatinine has remained stable with no significant rise * Patient can be discharged later today after echocardiogram and follow-up with me in the office.Above discussed with patient. * Thank you for allowing me to participate in the care of your patient. Please don't hesitate to call if any issues arise
[2018-03-12] MEDS: Isosorbide Mononitrate 30 MG Tablet PO (09:34)
[2018-03-12] MEDS: TICAGRELOR 90 MG TABLET PO (09:34)
[2018-03-12] MEDS: Aspirin E.C. 81 MG Tablet PO (09:34)
[2018-03-12] MEDS: Carvedilol 6.25 MG Tablet PO (09:35)
[2018-03-12 09:36] VITALS: BP 148/86; PULSE 67; RESP 16; TEMP 36.7; O2SAT 98
--- NOTE | 2018-03-12 10:00 | EKG12_ITS ---
Test Reason : AM Blood Pressure : / mmHG Vent. Rate : 065 BPM Atrial Rate : 065 BPM P-R Int : 170 ms QRS Dur : 094 ms QT Int : 400 ms P-R-T Axes : 042 051 040 degrees QTc Int : 416 ms Normal sinus rhythm Normal ECG When compared with ECG of 11-MAR-2018 16:26, MANUAL COMPARISON REQUIRED, DATA IS UNCONFIRMED Confirmed by POPEYE CHAMBERLAIN, RENAE ([id number]), managing editor SARAH LAYTON ([id number]) on 03/15/2018 3:54:52 PM Referred By: Billy Novoa Confirmed By:RENAE NYE MD
--- NOTE | 2018-03-12 10:04 | CASEMGMT ---
Addendum entered by Marleny Collier 03/12/18 14:11: Pt was provided with Advanced Directive paperwork prior to discharge. [facility] Original Note: Face to Face with patient for initial transition planning/care coordination assessment. CAROL TO introduced self and role at [facility], pt voices understanding and consents to assessment at this time. Pt is sitting up in bed in no distress at this time. Pt is A/O x4 at this time and answers all questions appropriately at this time. Care providers, pharmacy, and demographics verified. See attached link. Pt voices no further concerns/needs at this time. Advised pt to ask for CM if any further questions/concerns/needs arise, voices understanding. Pt declined list of local PCP's but did want advanced directive paperwork but chose not to complete it at this time. PLAN: Home [facility]
[2018-03-12 11:07] VITALS: PULSE 72
--- NOTE | 2018-03-12 11:49 | DCINST_ITS ---
- Discharge Diagnoses Current Active Problems: Current Active and Chronic Problems (Last Updated 03/12/18 @ 08:02 by Shannon Nguyen) STEMI (ST elevation myocardial infarction) (Chronic) Morbid obesity (Chronic) Nicotine dependence (Chronic) You will use the following diet at home:: Calorie/Carbohydrate Controlled ( specify 1200, 1400, etc) - 2000 jacqueline / day, Cardiac Your food should be the consistency of: Regular Your liquids should be the consistency of: Regular/Thin Discharge Activity: Return to Normal Activity Additional Instructions: Activity limitations as directed by cardiac rehab services Allergies/Adverse Reactions: Allergies No Known Allergies Allergy (Verified 03/10/18 15:33) Medications to take at Discharge Aspirin E.C. [Ecotrin] 81 mg PO DAILY@0800 tablet 03/12/18 Atorvastatin Calcium [Lipitor] 40 mg PO QHS #30 tab 03/12/18 Carvedilol [Coreg (Beta Tamara)] 6.25 mg PO BID #60 tab 03/12/18 Isosorbide Mononitrate [Imdur] 30 mg PO DAILY #30 tab 03/12/18 Ticagrelor [Brilinta] 90 mg PO BID #60 tab 03/12/18 The following prescriptions were given: Atorvastatin Calcium [Lipitor] 40 mg PO QHS #30 tab Carvedilol [Coreg (Beta Tamara)] 6.25 mg PO BID #60 tab Isosorbide Mononitrate [Imdur] 30 mg PO DAILY #30 tab Ticagrelor [Brilinta] 90 mg PO BID #60 tab Primary Care Physician: Care Physician,No Primary [Primary Care Provider] - Please follow up with your Primary Care Physician in: 1-2 weeks Test Results: Please Follow Up With: Jeromy Traylor MD When: 1-2 weeks Proposed Discharge Date: 03/12/18
--- NOTE | 2018-03-12 13:00 | PCM.DC.SUM ---
<Kiran Brown - Last Filed: 03/12/18 13:00> Discharge Date and Diagnosis Date of Admission: 03/10/18 Date of Discharge: 03/12/18 - Primary Discharge Diagnosis STEMI / CAD - acute inferior WI Posterolateral vessel s/p angioplasty HTN emergency resolved Nicotine Abuse Obesity - Secondary Discharge Diagnosis Chronic Problems (Last Updated 03/12/18 @ 08:02 by Shannon Nguyen) STEMI (ST elevation myocardial infarction) (Chronic) Morbid obesity (Chronic) Nicotine dependence (Chronic) Hospital Course and Treatment Imaging Results: RAD/Chest 1 View (Portable) IMPRESSION: Normal x-ray examination of the chest. Echo: Interpretation Summary Normal LV size. Left ventricular systolic function is lower limits of normal. The estimated ejection fraction is 50 %. No evidence for diastolic dysfunction. Mild segmental systolic dysfunction (see wall motion). Cardiology - [facility] Operations: None Procedures: 2-D Echocardiogram, Cardiac catheterization Summary of Care Provided: Physical exam on day of discharge: General: Resting comfortably NAD Psych: A/Ox3 normal affect HEENT: PEARRLA AT NC Neck: Supple NT CV: RRR no m/t/r/g/h Resp: CTA Abd: [id number] Soft NT no guarding or rigidity, obese Ext: DP2+= no edema Skin: W/D normal turgor Lymph/Heme: No active bleeding or adenopathy Neuro: CN2-12 intact Hospital course: The patient is a 37 year old M with a hx of obesity and nicotine abuse, not on any medications, and a family hx significant for CAD who presented to the ER with chest pain x 1 day described as both sharp and heavy, located in the anterior chest radiating into both shoulders and arms. EKG showed acute inferior STEMI. He was taken to the powerhouse laborer by Dr. Novoa and had 100% occlusion of the mid right posterior lateral ventricular branch and a drug eluting stent was placed. Halso he had 50% proximal RCA, 60% distal RCA, 60% mid LAD, 80% mid left circumflex, 95% proximal obtuse margin small vessels. He was placed on aspirin, statin, carvedilol, Imdur, and Brilinta. He was also placed on therapeutic Lovenox and nitro drip. He had improvement in his hypertension. He was given nicotine patch and gum for nicotine withdrawal. He was taken to the PCU and monitored on telemetry. He had an echocardiogram with results as above. He remained chest pain-free and medically stable after the heart catheterization. He was given prescriptions for his new medications. We strongly advised smoking cessation multiple times and he did agree to take a prescription for the nicotine patch. While here choleseterol was checked - LDL 155, total 211, HDL 30. We also strongly encouraged him to follow-up with a family medicine doctor which she was not doing. We advised him to follow-up with cardiology as an outpatient that he would need cardiac rehab, and that he will have his physical activity directed by cardiac rehab. With his obesity and coronary disease I have advised a cardiac and calorie controlled diet. He was discharged home in stable condition. This patient was seen by Kiran Brown PA-C under the supervision of Doctor Rodrigues. [] Discharge Diet: Low fat/ Low Cholesterol, 2000 Calorie Control Diet, 2000 mg Sodium Diet Discharge Activity: Return to Normal Activity Home Medications: Medications to take at Discharge Aspirin E.C. [Ecotrin] 81 mg PO DAILY@0800 tablet 03/12/18 Atorvastatin Calcium [Lipitor] 40 mg PO QHS #30 tab 03/12/18 Carvedilol [Coreg (Beta Tamara)] 6.25 mg PO BID #60 tab 03/12/18 Isosorbide Mononitrate [Imdur] 30 mg PO DAILY #30 tab 03/12/18 Nicotine [Nicoderm Cq (PBKC)] 21 mg TRANSDERM. DAILY #42 patch 03/12/18 Ticagrelor [Brilinta] 90 mg PO BID #60 tab 03/12/18 Following Prescrptions Were Given to Patient: Atorvastatin Calcium [Lipitor] 40 mg PO QHS #30 tab Isosorbide Mononitrate [Imdur] 30 mg PO DAILY #30 tab Nicotine [Nicoderm Cq (PBKC)] 21 mg TRANSDERM. DAILY #42 patch Carvedilol [Coreg (Beta Tamara)] 6.25 mg PO BID #60 tab Ticagrelor [Brilinta] 90 mg PO BID #60 tab Primary Care Physician: Care Physician,No Primary [Primary Care Provider] - Please follow up with your Primary Care Physician in: 1-2 weeks Please Follow Up With: Jeromy Traylor MD - Cardiac rehab as directed When: 1-2 weeks Disposition: Home Minutes spent on discharge:: 35 Patient Condition:: Stable Medical Necessity - Tobacco Use Smoking Status: Heavy Smoker (>10/day) Tobacco Use: Cigarettes Meaningful Use Info Meaningful Use Diagnoses (Choose all that apply): AMI - AMI Aspirin given w/in 24hrs of arrival?: Yes ASA at discharge?: Yes Statins at discharge?: Yes Bethel/ARB at discharge?: No Reason Bethel/ARB not ordered:: Drug Interaction Beta Tamara at discharge?: Yes Done w/ Acute WI measure.: Yes - CHF Documented LVEF (%): 50 <Frida Rodrigues - Last Filed: 03/12/18 16:25> Discharge Date and Diagnosis - Secondary Discharge Diagnosis Chronic Problems (Last Updated 03/12/18 @ 08:02 by Shannon Nguyen) STEMI (ST elevation myocardial infarction) (Chronic) Morbid obesity (Chronic) Nicotine dependence (Chronic) Hospital Course and Treatment Summary of Care Provided: The patient is a 37 year old M [] Code Visit Inpatient E&M: 45114 Disch Hosp
--- NOTE | 2018-03-12 13:11 | DS.PCM_ITS ---
<Kiran Brown - Last Filed: 03/12/18 13:00> Discharge Date and Diagnosis Date of Admission: 03/10/18 Date of Discharge: 03/12/18 - Primary Discharge Diagnosis STEMI / CAD - acute inferior [place] Posterolateral vessel s/p angioplasty HTN emergency resolved Nicotine Abuse Obesity - Secondary Discharge Diagnosis Chronic Problems (Last Updated 03/12/18 @ 08:02 by Shannon Nguyen) STEMI (ST elevation myocardial infarction) (Chronic) Morbid obesity (Chronic) Nicotine dependence (Chronic) Hospital Course and Treatment Imaging Results: RAD/Chest 1 View (Portable) IMPRESSION: Normal x-ray examination of the chest. Echo: Interpretation Summary Normal LV size. Left ventricular systolic function is lower limits of normal. The estimated ejection fraction is 50 %. No evidence for diastolic dysfunction. Mild segmental systolic dysfunction (see wall motion). Cardiology - [facility] Operations: None Procedures: 2-D Echocardiogram, Cardiac catheterization Summary of Care Provided: Physical exam on day of discharge: General: Resting comfortably NAD Psych: A/Ox3 normal affect HEENT: PEARRLA AT NC Neck: Supple NT CV: RRR no m/t/r/g/h Resp: CTA Abd: [id number] Soft NT no guarding or rigidity, obese Ext: DP2+= no edema Skin: W/D normal turgor Lymph/Heme: No active bleeding or adenopathy Neuro: CN2-12 intact Hospital course: The patient is a 37 year old M with a hx of obesity and nicotine abuse, not on any medications, and a family hx significant for CAD who presented to the ER with chest pain x 1 day described as both sharp and heavy, located in the anterior chest radiating into both shoulders and arms. EKG showed acute inferior STEMI. He was taken to the cathode ray tube salvage processor by Dr. Novoa and had 100% occlusion of the mid right posterior lateral ventricular branch and a drug eluting stent was placed. Halso he had 50% proximal RCA, 60% distal RCA, 60% mid LAD, 80% mid left circumflex, 95% proximal obtuse margin small vessels. He was placed on aspirin, statin, carvedilol, Imdur, and Brilinta. He was also placed on therapeutic Lovenox and nitro drip. He had improvement in his hypertension. He was given nicotine patch and gum for nicotine withdrawal. He was taken to the PCU and monitored on telemetry. He had an echocardiogram with results as above. He remained chest pain-free and medically stable after the heart catheterization. He was given prescriptions for his new medications. We strongly advised smoking cessation multiple times and he did agree to take a prescription for the nicotine patch. While here choleseterol was checked - LDL 155, total 211, HDL 30. We also strongly encouraged him to follow-up with a family medicine doctor which she was not doing. We advised him to follow-up with cardiology as an outpatient that he would need cardiac rehab, and that he will have his physical activity directed by cardiac rehab. With his obesity and coronary disease I have advised a cardiac and calorie controlled diet. He was discharged home in stable condition. This patient was seen by Kiran Brown PA-C under the supervision of Doctor Rodrigues. [] Discharge Diet: Low fat/ Low Cholesterol, 2000 Calorie Control Diet, 2000 mg Sodium Diet Discharge Activity: Return to Normal Activity Home Medications: Medications to take at Discharge Aspirin E.C. [Ecotrin] 81 mg PO DAILY@0800 tablet 03/12/18 Atorvastatin Calcium [Lipitor] 40 mg PO QHS #30 tab 03/12/18 Carvedilol [Coreg (Beta Tamara)] 6.25 mg PO BID #60 tab 03/12/18 Isosorbide Mononitrate [Imdur] 30 mg PO DAILY #30 tab 03/12/18 Nicotine [Nicoderm Cq (PBKC)] 21 mg TRANSDERM. DAILY #42 patch 03/12/18 Ticagrelor [Brilinta] 90 mg PO BID #60 tab 03/12/18 Following Prescrptions Were Given to Patient: Atorvastatin Calcium [Lipitor] 40 mg PO QHS #30 tab Isosorbide Mononitrate [Imdur] 30 mg PO DAILY #30 tab Nicotine [Nicoderm Cq (PBKC)] 21 mg TRANSDERM. DAILY #42 patch Carvedilol [Coreg (Beta Tamara)] 6.25 mg PO BID #60 tab Ticagrelor [Brilinta] 90 mg PO BID #60 tab Primary Care Physician: Care Physician,No Primary [Primary Care Provider] - Please follow up with your Primary Care Physician in: 1-2 weeks Please Follow Up With: Jeromy Traylor MD - Cardiac rehab as directed When: 1-2 weeks Disposition: Home Minutes spent on discharge:: 35 Patient Condition:: Stable Medical Necessity - Tobacco Use Smoking Status: Heavy Smoker (>10/day) Tobacco Use: Cigarettes Meaningful Use Info Meaningful Use Diagnoses (Choose all that apply): AMI - AMI Aspirin given w/in 24hrs of arrival?: Yes ASA at discharge?: Yes Statins at discharge?: Yes Bethel/ARB at discharge?: No Reason Bethel/ARB not ordered:: Drug Interaction Beta Tamara at discharge?: Yes Done w/ Acute MA measure.: Yes - CHF Documented LVEF (%): 50 <Frida Rodrigues - Last Filed: 03/12/18 16:25> Discharge Date and Diagnosis - Secondary Discharge Diagnosis Chronic Problems (Last Updated 03/12/18 @ 08:02 by Shannon Nguyen) STEMI (ST elevation myocardial infarction) (Chronic) Morbid obesity (Chronic) Nicotine dependence (Chronic) Hospital Course and Treatment Summary of Care Provided: The patient is a 37 year old M [] Code Visit Inpatient E&M: 96841 Disch Hosp
--- NOTE | 2018-03-12 13:52 | CRPHASE1 ---
Patient Data/Charges Phase II Referral:: [facility] - Phone call to pt. Booklet to be sent Risk Factors/Lifestyle Smoking Status: Current every day smoker Hx Obesity: Yes Laboratory Values: Cardiac Rehab Phase I Labs Triglycerides 132 mg/dL (-199) 03/11/18 04:45 Cholesterol 211 mg/dL (200) H 03/11/18 04:45 LDL Cholesterol 155 mg/dL (0-130) H 03/11/18 04:45 HDL Cholesterol 30 mg/dL (40-) L 03/11/18 04:45 Hospital Course Presenting Symptoms:: STEMI Medical/Surgical History [place]:: Yes PTCA:: Yes
--- NOTE | 2018-03-12 13:55 | CRPHASE1_ITS ---
Patient Data/Charges Phase II Referral:: [facility] - Phone call to pt. Booklet to be sent Risk Factors/Lifestyle Smoking Status: Current every day smoker Hx Obesity: Yes Laboratory Values: Cardiac Rehab Phase I Labs Triglycerides 132 mg/dL (-199) 03/11/18 04:45 Cholesterol 211 mg/dL (200) H 03/11/18 04:45 LDL Cholesterol 155 mg/dL (0-130) H 03/11/18 04:45 HDL Cholesterol 30 mg/dL (40-) L 03/11/18 04:45 Hospital Course Presenting Symptoms:: STEMI Medical/Surgical History [place]:: Yes PTCA:: Yes
--- NOTE | 2018-03-12 13:57 | CRPH1.INST_ITS ---
General Education CAD and cardiac anatomy and function:: Needs reinforcement Explanation of diagnoses and procedures:: Needs reinforcement Sign/Symptoms of OH:: Needs reinforcement Antiplatelet therapy: Needs reinforcement Proper use of NTG-SL: Not instructed Emergency procedures and activation of EMS: Needs reinforcement Compliance of all prescribed medications: Needs reinforcement Smoking Patient Nicotine/Smoking Risk Factors Are:: Cigarettes Recommendations Include:: Smoking cessation strategies/Smoking packet Nicotine/Smoking Response Code:: Needs reinforcement Dyslipidemia Patient Dyslipidemia Risk Factors Are:: Total Cholesterol Recommendations Include:: Lipid profile provided Dyslipidemia Response Code:: Needs reinforcement Overweight/Obesity Patient Overweight/Obesity Risk Factors Are:: Obesity - > or = 30 Recommendations Include:: Weight loss of 5-10%, Reduced calorie diet, Exercise 5 -7 times/week Overweight/Obesity:: Needs reinforcement Hypertension Recommendations Include:: Maintain BP <130/85, BP <130/80 if diabetic, DASH dietary guidelines, Decrease/maintain normal body weight, Moderation of ETOH Hypertension:: Needs reinforcement Heart Disease Patient Heart Disease Risk Factors Are:: Family history of heart disease < 65 years old Heart Disease Response Code:: Needs reinforcement Diabetes Diabetes:: Not instructed Metabolic Syndrome Patient Metabolic Syndrome Risk Factors Are [3 of 5]:: Fasting blood sugar > 100 mg/dL Metabolic Syndrome Response Code:: Needs reinforcement Sedentary Patient Sedentary Risk Factors Are:: Lack of regular exercise Recommendations Include:: Aerobic exercise 5-7 times/week for 20-30 minutes continuously Sedentary Response Code:: Needs reinforcement Stress Stress Response Code:: Not instructed
[2018-03-13 07:20] LABS: ACT Activated Clotting Time 147 sec (74-137)
== END 2018-03-12 13:10 | disposition home or self-care (01) | DRG 247 ==
LOC: ED 16:04 → ICU 16:19 → PCU 03-11 13:50 → ICU 03-13 12:53
PROVIDERS: Emergency Medicine; Admitting Provider Internal Medicine; Emergency Provider Emergency Medicine; Visit Provider Internal Medicine Cardiovascular Disease
DX: I21.19 ST elevation (STEMI) myocardial infarction involving other coronary artery of inferior wall (principal); I16.1 Hypertensive emergency; E66.01 Morbid (severe) obesity due to excess calories; Z68.39 Body mass index [BMI] 39.0-39.9, adult; F17.210 Nicotine dependence, cigarettes, uncomplicated; I25.10 Atherosclerotic heart disease of native coronary artery without angina pectoris
CPT/HCPCS: 71045; 80048; 80053; 80061; 84484; 85025; 85027; 85347; 85610; 85730; 92941; 93005; 93306; 93458; 99152; 99153; 99285; 99406; J7030; Q9957; Q9967; A4216; C1725; C1769; C1874; C1887; C1894; C8929; C9606; J0583; J2405; J3490

== ENCOUNTER → 2018-03-27 06:28 | Outpatient (CLI) | payer OTHER, SELFPAY ==
--- NOTE | 2018-03-27 07:56 | PCM.CR.HP2 ---
CR - History & Physical - General Arrival date:: 03/27/18 Arrival time:: 07:58 Date of Referral:: 03/12/18 Date of CR Evaluation:: 03/27/18 Referring Physician: Dr. Jeromy Traylor Primary Diagnosis: STEMI, S/P coronary stent - History of Present Cardiac Event Onset Date: Enter Onset Date of cardiac illnesses in Comment field below Acute Myocardial Infarction within 12 months:: Yes - 03/10/2018 PTCA or coronary stenting:: Yes - 03/10/2018 Type of Symptoms:: Arrived to ER via EMS from work w/crushing chest pain and arm; patient history of heavy smoker, obese, hypertension. Both parents had early onset of heart disease. Interventions with present event:: Emergent STEMI PCI intervention Were there any complications?: none - Medications Home Medications: Ambulatory Orders Medication Instructions Recorded Aspirin E.C. [Ecotrin] 81 mg PO DAILY@0800 tab 03/12/18 atorvastatin 40 mg tablet 40 mg PO QHS #30 tab 03/16/18 carvedilol 6.25 mg tablet 6.25 mg PO BID #60 tab 03/16/18 isosorbide mononitrate ER 30 mg 30 mg PO DAILY #30 tab 03/16/18 tablet,extended release 24 hr ticagrelor 90 mg tablet 90 mg PO BID #60 tab 03/16/18 - Allergies Allergies/Adverse Reactions: Allergies No Known Allergies Allergy (Verified 03/16/18 15:37) - Sleep Disorder Evaluation Hx of Sleep Apnea: Yes Do you snore loudly (louder than talking or can be heard through closed doors)?: Yes Do you often feel tired/ fatigued/ sleepy during daytime?: Yes Has anyone observed you stop breathing during sleep?: No History of Hypertension (for STOP score): Yes - Has MARILYN but no machine at home. STOP Results: Positive Advanced Directives - Advanced Directives Power of Head Of Mathematics: No Living Will: No Advance Directives Information Provided: Yes Advance Directives on File: No DNR Order?:: No - MOLST See MOLST form: No Past Medical History - Past Medical Illness Medical History: Past Medical History (Last Reviewed 03/16/18 @ 15:50 by Jeromy Traylor MD) Atherosclerosis of coronary artery of standing rock heart without angina pectoris (Acute) I25.10 PCI-FAYE-Mid Right PLV 03/10/18 Acute inferior myocardial infarction (Acute) I21.19 STEMI (ST elevation myocardial infarction) (Chronic) I21.3 Morbid obesity (Chronic) E66.01 Nicotine dependence (Chronic) F17.200 - Past Surgical History Surgical History: Past Surgical History (Last Reviewed 03/16/18 @ 15:50 by Jeromy Traylor MD) History of coronary artery stent placement (Acute) Onset Date: 03/10/18 Z95.5 PCI-FAYE-Mid Right PLV 03/10/18 Surgical History: no surgical history - Family History Summary Family History: Family History (Last Reviewed 03/16/18 @ 15:50 by Jeromy Traylor MD) Mother CAD (coronary artery disease) Father CAD (coronary artery disease) Social History - Smoking History Smoking Status: Heavy Smoker (>10/day) Years Smokin Packs Smoked per Day: 1 Hx Smoking Cessation Date: 03/22/18 Hx Tobacco Use: Yes Hx Smoking Exposure: Yes - Alcohol Use Alcohol Usage: No - Substance Abuse Hx Substance Use: No - Occupation Occupation (List type of work in comments):: Employed Hours worked per day:: 8 Returned to work on:: 03/22/18 - Hobbies, Recreation, Social Activities Hobbies: None Recreational Activities: I am able to engage in all my recreational activities Social Environment - Status Marital Status: Single - Current Living Arrangements Living Environment:: Family - Children Do any of your children live nearby?: No - Safety Do you feel safe in your surroundings?: Yes - Assistance Do you need any assistance at home?: none Review of Systems - Review of Systems Hints: Right click = Denies (Slash). Left click = Reports ([place]) Review of Present Symptoms: Reports: Fatigue, Appetite - Special Diet - 1800 low fat, low sodium, Sleep - Normal. Denies: Shortness of Breath at Rest, Shortness of Breath with Exertion, Angina, Dizziness/Lightheadedness, Heart Arrhythmia/Irregularities, Appetite - Normal - cut back on portions, trying to follow diet instructions, Sexual Changes - Pain Is Patient Pain Free?: Yes Pain Location: none Pain Level: 0/10 Risk Factor Assessment - Chief Complaint Chief Complaint: Patient presents to cardiac rehab today under the care of Dr. Traylor following recent STEMI and PCI intervention. - Vital Signs Temperature: 98.7 F Respiratory Rate: 16 Pulse Ox: 98 Blood Pressure: 138/82 Nailbeds:: pink - Pulse Pulse Rate: 88 Pulse Rhythm: Regular - Hypertension How long have you been treated?: 5 years On medication(s)?: Yes; went short time with no insurance and no medications. Blood Pressure Sitting - Left Arm: 138/82 - Blood Cholesterol/Lipids Total Cholesterol (mg/dL) Goal = less than 200 mg/dL: 211 HDL Cholesterol (mg/dL) Goal = less than 40 mg/dL: 30 LDL Cholesterol (mg/dL) Goal = less than 70 mg/dL: 155 Triglycerides (mg/dL) Goal = less than 150 mg/dL: 132 - Obesity Height: 5 ft 8 in Weight:: 252 lb Weight in Pounds: 252.0 lbs Weight Source: Standing Scale Body Mass Index (BMI): 38.2 Nutritional Referral for Obesity: Yes - Physical Inactivity Physical Inactivity: Physically demanding job - Risk Stratification Risk Guidelines: Lowest Risk: Risk Factor for Dyslipidemia, Risk Factor for Diabetes, Risk Factor for Sedentary Lifestyle, Risk Factor for Depression, Moderate Risk: Risk Factor for Hypertension, Highest Risk: Risk Factor for Smoking, Risk Factor for Obesity - For Smoking Smoking Risk Guidelines: Smoking Low Risk: None or quit greater than 6 months ago. Smoking Moderate Risk: Smoker or quit 6 months or less ago. Smoking High Risk: Smoker - For Dyslipidemia Dyslipidemia Risk Guidelines: Low Risk: Moderate Risk: High Risk: 15-25% fat 25.1-29% fat >/= 30% fat. <7% sat fat 7-9% sat fat >9% sat fat. <150 mg chol 150-299 mg chol >/= 300 mg chol. LDL <100 LDL 100-129 LDL >/= 130. Chol/HDL ratio <5.0 Chol/HDL ratio 5.0-6.0 Chol/HDL ratio >6.0. Triglycerides <100 Triglycerides 100-149 Triglycerides >/= 150 - For Diabetes Mellitus Diabetes Risk Guidelines: Diabetes Low Risk: HgA1c <6.5% and/or FBG <120. Diabetes Moderate Risk: HgA1c 6.6-7.9% and/or FBG 120-180. Diabetes High Risk: HgA1c >/= 8% and/or FBG >180 - For Obesity/Overweight Obesity/Overweight Risk Guidelines: Obesity Low Risk: BMI <25.0. Obesity Moderate Risk: BMI 25-29.9. Obesity High Risk: BMI >/= 30.0 - For Hypertension Hypertension Risk Guidelines: Hypertension Low Risk: Systolic <120 and Diastolic <80. Hypertension Moderate Risk: Systolic 120-139 and Diastolic 80-89. Hypertension High Risk: Systolic >/= 140 and Diastolic >/= 90 - For Sedentary Lifestyle Sedentary Lifestyle Risk Guidelines: Sedentary Lifestyle Low Risk: >/= 1,500 kcal/week. Sedentary Lifestyle Moderate Risk: 700-1,499 kcal/week. Sedentary Lifestyle High Risk: < 700 kcal/week - For Depression Depression Risk Guidelines: Depression Low Risk: Not clinically depressed. Depression Moderate Risk: Mildly depressed. Depression High Risk: Clinically depressed - Family History Family History: Family History (Last Reviewed 03/16/18 @ 15:50 by Jeromy Traylor MD) Mother CAD (coronary artery disease) Father CAD (coronary artery disease) Motivation - Motivation to Participate On a scale of 1 to 10, how prepared are you to commit to attending program?: 0 What do you see as barriers to successfully being able to complete the program?: none; Don't want to do the program. The doctors are making me. Are there issues you are dealing with that will interfere with completing the program?: back to work and feel doing well. Do you have a spouse or signficant other, family or friends who will help support you to complete the program?: cousin is an RN and helps me with cooking.
--- NOTE | 2018-03-27 08:05 | CR.ITP_ITS ---
General Information - General Information Admitting Diagnosis: STEMI w/emergent PCI intervention s/p coronary stent placement - Education/Goals Individual Counseling: Initial Assessment: Nicotine/Smoking, High Blood Pressure , Overweight/Obesity Cardiac Rehabilitation Goals: 1. Maintain the individual as the primary focus of care. 2. To improve the patient's quality of life. 3. Identification of cardiac risk factors and provide cardiac risk factor management. 4. Enhance the psychosocial status of the patient. 5. Reconditioning enough to allow the patient to resume customary activities. 6. Control symptoms of cardiac disease Scale for measuring improvement of personal goals: Enter appropriate number in Comments. 2 = Unchanged. 3 = Slightly Better. 4 = Moderate Improvement. 5 = Met my Goal Personal Goals: Initial Assessment: Quit smoking (participate in smoking cessation - patient did not express any desire to quit smoking. Is not using Nicoderm CQ patches., Get back to work, or to resume activities faster - Started back to wrok 03/22/18, Control risk factors (learn risk factor modification) Exercise - Initial Assessment - Visit Date of Eval: 03/27/18 - established ITP; Patient has declined participation in the program. Stated he has no desire to participate and was only here today because the doctor is making him. - Stages of Change Stages of Change:: Action - Exercise Prescription Mode:: Treadmill, Rower, Airdyne Angina with exercise?: No Target Heart Rate:: 126-135 - Hypertension Do any of the following apply?: Yes Resting Blood Pressure:: 132/82 - Intervention Home Exercise/Activity Goal:: Moderate Exercise 30 min/day x 5 days/wk - Education Goals:: Warm-up, RPE DELORES Scale, S/S, Safe Exercise, Self-Monitoring - Exercise Program Goals Exercise Program Goals: Aerobic Activity >30 min Nutrition - Initial Assessment - Program Goals Nutrition Program Goals: LDL <70. Total Cholesterol <200. HDL >45. Triglycerides <150. HgbA1C <7%. BMI <25 - Visit Date of Assessment:: 03/27/18 - Stages of Change Stages of Change:: Action - Lipids Total Cholesterol (mg/dL) Goal = less than 200 mg/dL: 211 HDL Cholesterol (mg/dL) Goal = less than 45 mg/dL: 30 LDL Cholesterol (mg/dL) Goal = less than 70 mg/dL: 155 Triglycerides (mg/dL) Goal = less than 150 mg/dL: 132 - Diabetes Diabetes:: No - Weight Management Height: 5 ft 8 in Weight:: 252 lb Body Fat %:: 38.2 - Intervention Referral to dietitian:: Yes Referral to Diabetic Clinic:: No Will attend diet classes:: Yes - Education Gave educational materials for:: Healthy eating Tobacco - Initial Assessment - Program Goals Tobacco Program Goals: Complete smoking cessation. Attend education classes. Improve Knowledge Test score - Stage of Change Stages of Change:: Action - Learning Barriers Learning Barriers: Ready to Learn - Family Support Do you have family support?: Yes - Tobacco Use Tobacco Use: Cigarettes How many cigarettes do you smoke per day?: 20 Years Smokin Do you use smokeless tobacco?: No - Intervention Smoking Cessation Referral:: Yes Individual Education/Counseling:: No Education Schedule Given:: Yes - Education Gave educational material for:: Tobacco triggers, Coronary artery disease, Risk factors, Sexuality, Medical compliance, Cardiac A&P, Angina signs & symptoms Psychosocial - Initial Assess - Target Goals Target Goals: Assess presence or absence of depression. Using a valid screening tool, maximizes coping skills. Positive support system - Stages of Change Stages of Change:: Action - Psychosocial Test Tool Used:: HANDS Depression Questionnaire - Intervention PS - Interventions: Yes Attend Stress Management Classes, No Referral to Mental Health, No Referral to [facility] Case Management, No Referral to Physician, No Uses Stress Management Skills - Education Gave educational materials for:: Coping techniques, Signs & symptoms of depression, Stress management, Relaxation techniques - Patient/Program Goal Preventative Medication(s):: Aspirin, Clopidogrel, Beta domingo, Statin/lipid - Assistive Devices Assistive Devices:: None Fall Risk Assessed:: Yes Patient Health Questionnaire Initial Assessment 1. Little interest or pleasure in doing things: Not at all 2. Feeling down, depressed, or hopeless: Not at all 3. Trouble falling or staying asleep, or sleeping too much: Not at all 4. Feeling tired or having little energy: Not at all 5. Poor appetite or overeating: Not at all 6. Feeling bad about yourself -- or that you are a failure or have let yourself or your family down: Not at all 7. Trouble concentrating on things, such as reading the newspaper or watching television: Not at all 8. Moving or speaking so slowly that other people could have noticed. Or the opposite - being so fidgety or restless that you have been moving around a lot more than usual: Not at all 9. Thoughts that you would be better off , or of hurting yourself in some way: Not at all How difficult have these problems made it for you to do your work, take care of things at home, or get along with other people?: Not difficult at all Total Score: 0 VALDEMAR-Q SV Test - Statements CAD is a disease of the arteries in the heart: False Examples of risk factors for heart disease: True Angina is chest pain or discomfort: True The benefits of resistance training include: True Eating more meat and dairy products: False Anti-platelet medications such as aspirin are important: True The only effective way to manage stress: True An exercise warm-up slowly increases heart rate: True Prepared, processed foods usually have high sodium: I Don't Know Depression is common after a heart attack: I Don't Know The statin medications lower cholesterol: I Don't Know To control blood pressure, lower the amount of sodium: True If someone gets chest discomfort during walking: False Transfats are partially hydrogenated vegetable oils: I Don't Know Sleep apnea that is not treated increases the risk: False To control cholesterol, one should become a vegetarian: I Don't Know Someone knows if he/she is exercising at the right level: True Diabetes cannot be prevented with exercise & health eating: True Stress is a large risk for heart attack: True A diet that can help lower blood pressure is rich in: True - Missed 03/30 questions - Total Score Total Correct Responses: 13 Self-Efficacy Initial Assessment We would like to know how confident you are in doing certain activities. Please select your confidence level for:: Select your confidence level for the following using the scale 1-10 where 1 is not at all confident and 10 is totally confident. Your score is the average of all 6 responses. Fatigue: How confident are you that you can keep the fatigue caused by your disease from interfering with the things you want to do? Select Number: 7 Physical Discomfort or Pain: How confident are you that you can keep the physical discomfort or pain of your disease from interfering with the things you want to do? Select Number: 9 Emotional Distress: How confident are you that you can keep the emotional distress caused by your disease from interfering with the things you want to do? Select Number: 9 Other Symptoms or Health Problems: How confident are you that you can keep other symptoms or health problems from interfering with the things you want to do? Select Number: 9 Different Tasks and Activities: How confident are you that you can do the different tasks and activities needed to manage your health condition so as to reduce your need to see a doctor? Select Number: 9 Medication: How confident are you that you can do things other than just taking medication to reduce how much your illness affects your everyday life? Select Number: 9 Total Score:: 8 Nutrition Survey - Nutrition Survey Instructions Scoring Instructions: Scoring is as follows: Yes = 1 points. No = 0 point. Patient score that is >/=12 is considered to be at potential nutritional risk and could benefit from a referral to a registered dietitian. - Nutrition Survey Initial Have you lost >10 lbs over the past 2 months without trying?: Yes Are you following a special diet at home for diabetes, low fat, or low salt?: No Are you interested in meeting with a dietitian for help understanding your diet? : No Do you eat less than 3 meals a day?: Yes Do you eat fatty meats (aguilar, sausage, ribs, etc), fried foods, desserts, large amounts of salad dressings, margarine, butter, or cheese most days?: Yes Do you have food allergies? [Enter types in comment field]: No Do you eat in restaurants more than 3 times a week?: No Do you season food with salt, seasoning salt, or garlic salt?: Yes Do you used canned, boxed, frozen meals, or soups, seasoning packets?: No - Potential Risk Total Score:: 4
--- NOTE | 2018-03-27 08:09 | CR.HP_ITS ---
CR - History & Physical - General Arrival date:: 03/27/18 Arrival time:: 07:58 Date of Referral:: 03/12/18 Date of CR Evaluation:: 03/27/18 Referring Physician: Dr. Jeromy Traylor Primary Diagnosis: STEMI, S/P coronary stent - History of Present Cardiac Event Onset Date: Enter Onset Date of cardiac illnesses in Comment field below Acute Myocardial Infarction within 12 months:: Yes - 03/10/2018 PTCA or coronary stenting:: Yes - 03/10/2018 Type of Symptoms:: Arrived to ER via EMS from work w/crushing chest pain and arm ; patient history of heavy smoker, obese, hypertension. Both parents had early onset of heart disease. Interventions with present event:: Emergent STEMI PCI intervention Were there any complications?: none - Medications Home Medications: Ambulatory Orders Medication Instructions Recorded Aspirin E.C. [Ecotrin] 81 mg PO DAILY@0800 tab 03/12/18 atorvastatin 40 mg tablet 40 mg PO QHS #30 tab 03/16/18 carvedilol 6.25 mg tablet 6.25 mg PO BID #60 tab 03/16/18 isosorbide mononitrate ER 30 mg 30 mg PO DAILY #30 tab 03/16/18 tablet,extended release 24 hr ticagrelor 90 mg tablet 90 mg PO BID #60 tab 03/16/18 - Allergies Allergies/Adverse Reactions: Allergies No Known Allergies Allergy (Verified 03/16/18 15:37) - Sleep Disorder Evaluation Hx of Sleep Apnea: Yes Do you snore loudly (louder than talking or can be heard through closed doors)? : Yes Do you often feel tired/ fatigued/ sleepy during daytime?: Yes Has anyone observed you stop breathing during sleep?: No History of Hypertension (for STOP score): Yes - Has MARILYN but no machine at home. STOP Results: Positive Advanced Directives - Advanced Directives Power of Licensed Nurse Practitioner: No Living Will: No Advance Directives Information Provided: Yes Advance Directives on File: No DNR Order?:: No - MOLST See MOLST form: No Past Medical History - Past Medical Illness Medical History: Past Medical History (Last Reviewed 03/16/18 @ 15:50 by Jeromy Traylor MD) Atherosclerosis of coronary artery of [place] heart without angina pectoris ( Acute) I25.10 PCI-FAYE-Mid Right PLV 03/10/18 Acute inferior myocardial infarction (Acute) I21.19 STEMI (ST elevation myocardial infarction) (Chronic) I21.3 Morbid obesity (Chronic) E66.01 Nicotine dependence (Chronic) F17.200 - Past Surgical History Surgical History: Past Surgical History (Last Reviewed 03/16/18 @ 15:50 by Jeromy Traylor MD) History of coronary artery stent placement (Acute) Onset Date: 03/10/18 Z95.5 PCI-FAYE-Mid Right PLV 03/10/18 Surgical History: no surgical history - Family History Summary Family History: Family History (Last Reviewed 03/16/18 @ 15:50 by Jeromy Traylor MD) Mother CAD (coronary artery disease) Father CAD (coronary artery disease) Social History - Smoking History Smoking Status: Heavy Smoker (>10/day) Years Smokin Packs Smoked per Day: 1 Hx Smoking Cessation Date: 03/22/18 Hx Tobacco Use: Yes Hx Smoking Exposure: Yes - Alcohol Use Alcohol Usage: No - Substance Abuse Hx Substance Use: No - Occupation Occupation (List type of work in comments):: Employed Hours worked per day:: 8 Returned to work on:: 03/22/18 - Hobbies, Recreation, Social Activities Hobbies: None Recreational Activities: I am able to engage in all my recreational activities Social Environment - Status Marital Status: Single - Current Living Arrangements Living Environment:: Family - Children Do any of your children live nearby?: No - Safety Do you feel safe in your surroundings?: Yes - Assistance Do you need any assistance at home?: none Review of Systems - Review of Systems Hints: Right click = Denies ([place]ash). Left click = Reports ([place]) Review of Present Symptoms: Reports: Fatigue, Appetite - Special Diet - 1800 low fat, low sodium, Sleep - Normal. Denies: Shortness of Breath at Rest, Shortness of Breath with Exertion, Angina, Dizziness/Lightheadedness, Heart Arrhythmia/Irregularities, Appetite - Normal - cut back on portions, trying to follow diet instructions, Sexual Changes - Pain Is Patient Pain Free?: Yes Pain Location: none Pain Level: 0/10 Risk Factor Assessment - Chief Complaint Chief Complaint: Patient presents to cardiac rehab today under the care of Dr. Traylor following recent STEMI and PCI intervention. - Vital Signs Temperature: 98.7 F Respiratory Rate: 16 Pulse Ox: 98 Blood Pressure: 138/82 Nailbeds:: pink - Pulse Pulse Rate: 88 Pulse Rhythm: Regular - Hypertension How long have you been treated?: 5 years On medication(s)?: Yes; went short time with no insurance and no medications. Blood Pressure Sitting - Left Arm: 138/82 - Blood Cholesterol/Lipids Total Cholesterol (mg/dL) Goal = less than 200 mg/dL: 211 HDL Cholesterol (mg/dL) Goal = less than 40 mg/dL: 30 LDL Cholesterol (mg/dL) Goal = less than 70 mg/dL: 155 Triglycerides (mg/dL) Goal = less than 150 mg/dL: 132 - Obesity Height: 5 ft 8 in Weight:: 252 lb Weight in Pounds: 252.0 lbs Weight Source: Standing Scale Body Mass Index (BMI): 38.2 Nutritional Referral for Obesity: Yes - Physical Inactivity Physical Inactivity: Physically demanding job - Risk Stratification Risk Guidelines: Lowest Risk: Risk Factor for Dyslipidemia, Risk Factor for Diabetes, Risk Factor for Sedentary Lifestyle, Risk Factor for Depression, Moderate Risk: Risk Factor for Hypertension, Highest Risk: Risk Factor for Smoking, Risk Factor for Obesity - For Smoking Smoking Risk Guidelines: Smoking Low Risk: None or quit greater than 6 months ago. Smoking Moderate Risk: Smoker or quit 6 months or less ago. Smoking High Risk: Smoker - For Dyslipidemia Dyslipidemia Risk Guidelines: Low Risk: Moderate Risk: High Risk: 15-25% fat 25.1-29% fat >/= 30% fat. <7% sat fat 7-9% sat fat >9% sat fat. <150 mg chol 150-299 mg chol >/= 300 mg chol. LDL <100 LDL 100-129 LDL >/= 130. Chol/HDL ratio <5.0 Chol/HDL ratio 5.0-6.0 Chol/HDL ratio >6.0. Triglycerides <100 Triglycerides 100-149 Triglycerides >/= 150 - For Diabetes Mellitus Diabetes Risk Guidelines: Diabetes Low Risk: HgA1c <6.5% and/or FBG <120. Diabetes Moderate Risk: HgA1c 6.6-7.9% and/or FBG 120-180. Diabetes High Risk: HgA1c >/= 8% and/or FBG >180 - For Obesity/Overweight Obesity/Overweight Risk Guidelines: Obesity Low Risk: BMI <25.0. Obesity Moderate Risk: BMI 25-29.9. Obesity High Risk: BMI >/= 30.0 - For Hypertension Hypertension Risk Guidelines: Hypertension Low Risk: Systolic <120 and Diastolic <80. Hypertension Moderate Risk: Systolic 120-139 and Diastolic 80-89. Hypertension High Risk: Systolic >/= 140 and Diastolic >/= 90 - For Sedentary Lifestyle Sedentary Lifestyle Risk Guidelines: Sedentary Lifestyle Low Risk: >/= 1 ,500 kcal/week. Sedentary Lifestyle Moderate Risk: 700-1,499 kcal/week. Sedentary Lifestyle High Risk: < 700 kcal/week - For Depression Depression Risk Guidelines: Depression Low Risk: Not clinically depressed. Depression Moderate Risk: Mildly depressed. Depression High Risk: Clinically depressed - Family History Family History: Family History (Last Reviewed 03/16/18 @ 15:50 by Jeromy Traylor MD) Mother CAD (coronary artery disease) Father CAD (coronary artery disease) Motivation - Motivation to Participate On a scale of 1 to 10, how prepared are you to commit to attending program?: 0 What do you see as barriers to successfully being able to complete the program? : none; Don't want to do the program. The doctors are making me. Are there issues you are dealing with that will interfere with completing the program?: back to work and feel doing well. Do you have a spouse or signficant other, family or friends who will help support you to complete the program?: cousin is an RN and helps me with cooking.
[2018-03-27 08:24] VITALS: BP 138/82; PULSE 88; RESP 16; TEMP 37.1; O2SAT 98; BMI 38.2
[2018-03-27 08:33] VITALS: BP 132/82
== END ==
PROVIDERS: Family Provider Family Medicine; PCP Family Medicine; Visit Provider Internal Medicine Cardiovascular Disease
DX: I25.10 Atherosclerotic heart disease of native coronary artery without angina pectoris (principal); I21.19 ST elevation (STEMI) myocardial infarction involving other coronary artery of inferior wall; I25.2 Old myocardial infarction; E66.01 Morbid (severe) obesity due to excess calories; I10 Essential (primary) hypertension; Z95.5 Presence of coronary angioplasty implant and graft; Z79.82 Long term (current) use of aspirin; Z79.899 Other long term (current) drug therapy; F17.200 Nicotine dependence, unspecified, uncomplicated

== ENCOUNTER 2018-05-01 08:53 | Outpatient (RCR) | payer OTHER, SELFPAY | END 2018-05-01 23:59 | LOC: NS 08:53 | PROVIDERS: Family Provider Family Medicine; PCP Family Medicine; Visit Provider Internal Medicine Cardiovascular Disease | DX: E66.01 Morbid (severe) obesity due to excess calories (principal); I10 Essential (primary) hypertension; I21.19 ST elevation (STEMI) myocardial infarction involving other coronary artery of inferior wall; Z68.39 Body mass index [BMI] 39.0-39.9, adult | CPT/HCPCS: 97802 ==

== ENCOUNTER 2018-06-06 18:10 | Emergency (ER) | payer OTHER, SELFPAY ==
[2018-06-06] VITALS (8 sets, daily range): BP systolic 130–147; BP diastolic 82–96; PULSE 67–81; RESP 18–20; TEMP 36.4; O2SAT 96–100; BMI 36.5
--- NOTE | 2018-06-06 18:53 | EKG12_ITS ---
Test Reason : CP Blood Pressure : / mmHG Vent. Rate : 077 BPM Atrial Rate : 077 BPM P-R Int : 182 ms QRS Dur : 086 ms QT Int : 382 ms P-R-T Axes : 049 048 048 degrees QTc Int : 432 ms Normal sinus rhythm Normal ECG Confirmed by DELFINO CHAMBERLAIN, SOHA ([id number]), manager editorial SARAH LAYTON ([id number]) on 06/08/2018 1:58:33 PM Referred By: OTIS Confirmed By:SOHA SALEH MD
--- NOTE | 2018-06-06 19:00 | RAD_ITS ---
STUDY: X-RAY CHEST REASON FOR EXAM: Male, 38 years old. Chest pain TECHNIQUE: AP portable COMPARISON: March 10, 2018 FINDINGS: There is prominence of the interstitial markings in the lower lobes greater on the right. This has increased since prior study and may represent acute inflammatory changes.. There is no demonstrated pleural abnormality. Normal size heart. Normal mediastinum and robel. Normal visualized pulmonary arteries. Normal visualized aortic arch and descending thoracic aorta. Normal visualized thoracic spine. Normal visualized ribs, clavicles, and shoulders. There is no demonstrated abnormality of the visualized soft tissue structures of the upper abdomen. RAD/Chest 1 View (Portable) IMPRESSION: Increasing interstitial markings in the right lower lobe since prior exam possibly representing acute inflammatory changes. No other significant change Electronically Signed: Karson Hickman MD at 19:22 EDT , Service support ,
--- NOTE | 2018-06-06 19:13 | ED.VISSUMM ---
- ER Visit Summary Date of Service: 06/06/18 Chief Complaint: Chest pain History of Present Illness: The patient is a 38 M with history of prior DC status post stents who presents for chest pain. Onset was 3-5 hours ago. Pain is in the left chest and radiates into his left arm. It is sharp and continuous. It is worsened by nothing. Patient states this is how his prior heart attack presented. He denies any nausea, vomiting, shortness of breath, cough or fever. He has not taken any nitroglycerin for it. He took one baby aspirin today. Patient is on Brilinta and baby aspirin at home. He does smoke. Physical Examination: Vital signs: afebrile, hemodynamically stable, no hypoxia on room air General: well nourished, well developed, in no distress Skin: warm, dry, no rash, no pallor HEENT: normocephalic and atraumatic; PERRL, EOMI, moist mucous membranes Cardiovascular: regular rate and rhythm without murmurs, no peripheral edema, 2+ pulses all distal extremities Respiratory: No increased work of breathing, lungs are clear to auscultation bilaterally, no rales, rhonchi or wheezing Abdominal: Abdomen is soft, nontender with normoactive bowel sounds, no guarding or rebound, no masses MSK: Moves all extremities, no deformities, normal strength Neuro: Awake and alert, oriented ?4. No facial droop, sensation and motor function intact and symmetric Test Results: Abnormal Lab Results 06/06/18 06/06/18 18:50 18:50 WBC 11.4 H RBC 4.63 Hgb 14.1 Hct 42.2 MCV 91.1 MCH 30.5 MCHC 33.4 RDW 13.0 RDW Differential 43.1 Plt Count 205 MPV 10.8 Immature Gran % (Auto) 0.100 Neut % (Auto) 63.5 Lymph % (Auto) 26.0 Coffee % (Auto) 7.8 Eos % (Auto) 2.2 Baso % (Auto) 0.4 Absolute Neuts (auto) 7.2 Absolute Lymphs (auto) 2.96 Total Counted Not Reportable Sodium 138 Potassium 3.7 Chloride 106 Carbon Dioxide 24.0 Anion Gap 8 BUN 15 Creatinine 1.08 Estim Creat Clear Calc 87.96 Est GFR (MDRD) Af Amer 97 Est GFR (MDRD) Non-Af 81 BUN/Creatinine Ratio 13.9 Glucose 91 Calcium 8.8 Troponin I < 0.015 Clinical Impression(s) from Imaging Studies Chest X-Ray 06/06/18 19:00 IMPRESSION: Increasing interstitial markings in the right lower lobe since prior exam possibly representing acute inflammatory changes. No other significant change Electronically Signed: Karson Hickman MD at 19:22 EDT , Service support , Medications Given Discontinued Medications Aspirin (Aspirin, Baby) 243 mg PO X1 ONE Stop: 06/06/18 19:13 Last Admin: 06/06/18 19:35 Dose: 243 mg Nitroglycerin (Nitrostat) 0.4 mg SUBLINGUAL Q5M PRN PRN Reason: CARDIAC/CHEST PAIN Last Admin: 06/06/18 19:46 Dose: 0.4 mg Admin: 06/06/18 19:42 Dose: 0.4 mg Admin: 06/06/18 19:37 Dose: 0.4 mg Emergency Department Course and Treatment: Patient was given 3 additional baby aspirin and nitroglycerin sublingual. EKG showed a sinus rhythm without any ischemic changes. Initial troponin negative. No CBC or BMP significant abnormalities. On repeat evaluation patient was pain-free. Given patient's history of prior myocardial infarction presenting in the same way in his concerning story today, patient is to be admitted for further chest pain workup. 20:45 -patient was to be admitted, however he stated he did not want to stay. I discussed with him that we are concerned that he may be having a heart attack, as he has significant heart disease and this is very similar to his last heart attack. Patient adamantly did not want to stay, and I discussed with him that he could have worsening of his condition if he does not have a heart attack addressed now while it is in the early stages, or he could even go home and . Patient stated he wanted to go home. Patient was discussed with the hospitalist Dr. Collado who also spoke to the patient, and he still was adamant that he wanted to go home. Patient filled out the AMA paperwork after we discussed the risks of him leaving. Patient is aware of the risks and understands. He was discharged AGAINST MEDICAL ADVICE. Treatment Plan: [] Disposition: [] Impression: chest pain, concern for ACS This note was generated with [employer] dictation software. It may contain incorrect words, spelling, and punctuation that were not noted in review of the chart prior to signing ED Disposition - Plan for ED Patient: Disposition: Against Medical Advice Chief Complaint: Chest Pain Instructions: ED Heart Disease Risk Factors, ED Refusal Of Further Treatment Referrals: Jeromy Traylor MD [STAFF PHYSICIAN] - As soon as possible Karson Troy MD [Primary Care Provider] - Additional Instructions: Please return immediately to the emergency department if you change your mind and would like further workup for your chest pain. You have significant heart disease, and we are concerned that you are having a heart attack. Please continue taking all your medications. Call Dr. Traylor first thing in the morning to arrange a follow-up appointment as soon as possible. If you have any worsening of your condition or any new concerning symptoms, please return immediately to the emergency department for another evaluation.
[2018-06-06 19:16] LABS: Absolute Lymphocyte Count 2.96 X10^3/ul (0.83-4.51); Absolute Neutrophil Count 7.2 X10^3/uL (2.0-7.7); Basophil# 0.05 X10^3/uL; Basophil% 0.4 % (0-1); Eosinophil# 0.25 X10^3/uL; Eosinophils% 2.2 % (0-5); Hematocrit 42.2 % (40-54); Hemoglobin 14.1 g/dl (13.0-16.5); Lymphocyte # 2.96 X10^3/ul (4.0); Mean Corp Hgb Conc 33.4 g/gl (32-36); Mean Corpuscular Hgb 30.5 pg (27.0-32.0); Mean Corpuscular Volume 91.1 fL (80-94); Mean Platelet Vol. 10.8 fl (6.2-12.0); Monocyte# 0.89 X10^3/uL; Monocyte% 7.8 % (0-10); Neutrophil # 7.22 X10^3/uL (2.7-7.7); Neutrophil % 63.5 % (47-70); Platelet Count 205 K/mm3 (150-450); RBC Distribution Width SD 43.1 fl (35.1-43.9); Red Blood Count 4.63 M/mm3 (4.6-6.2); White Blood Count 11.4 K/mm3 (4.4-11.0)
[2018-06-06 19:18] LABS: POSITIVE COUNT NO; POSITIVE DIFFERENTIAL NO; POSITIVE MORPHOLOGY NO
[2018-06-06 19:29] LABS: Anion Gap 8 (5-15); BUN 15 mg/dL (7-18); BUN/Creat Ratio 13.9 RATIO (10-20); Calcium,Total 8.8 mg/dL (8.5-10.1); Chloride 106 mmol/L (98-107); Creatinine, Serum 1.08 mg/dL (0.70-1.30); EST Glomerular Filtration Rate 81 mL/min (>60); Est Glom Filt Rate - Afr Amer 97 mL/min (>60); Estimated Creatinine Clearance 87.96 ml/min; Glucose 91 mg/dL (74-106); Potassium 3.7 mmol/L (3.5-5.1); Sodium Level 138 mmol/L (136-145)
[2018-06-06] MEDS: Aspirin 81 MG TAB.CHEW 243 MG PO (19:35)
--- NOTE | 2018-06-06 20:37 | HP.PCM_ITS ---
Problem List (1) Chest pain Status: Acute Qualifiers: Chest pain type: unspecified Qualified Code(s): R07.9 - Chest pain, unspecified (2) Obesity (BMI 30-39.9) Status: Chronic (3) HTN (hypertension) Status: Chronic Qualifiers: Hypertension type: essential hypertension Qualified Code(s): I10 - Essential (primary) hypertension (4) HLD (hyperlipidemia) Status: Chronic Qualifiers: Hyperlipidemia type: unspecified Qualified Code(s): E78.5 - Hyperlipidemia, unspecified (5) History of coronary artery stent placement Status: Chronic Comment: PCI-FAYE-Mid Right PLV 03/10/18 (6) Nicotine dependence Status: Chronic Qualifiers: Nicotine product type: unspecified Substance use status: unspecified nicotine-induced disorder Qualified Code(s): F17.209 - Nicotine dependence, unspecified, with unspecified nicotine-induced disorders History of Present Illness Date of Admission: 06/06/18 Chief Complaint: Chest pain The patient is a 38 y/o M w/ PMHx: HTN, HLD, Tobacco use, Obesity, MARILYN, CAD s/p PCI-FAYE-Mid Right PLV 03/10/18 who presents to the [facility] ED on 06/06/18 with history of left sided chest heaviness w/ radiation into the LUE while at rest, 4/10-->0/10 following NG series in the ED. In the ED work-up included any 7.6, heart rate 80, BP 144/82--> 134/87, respiratory rate 18, 97% on room air, CBC with WBC 11.4, hemoglobin 14.1, platelet 205 without shift, unremarkable BMP, troponin less than 0.015, EKG with , CXR with increased markings right lower lobe since prior possibly representing acute inflammatory changes with no acute findings otherwise. In the ED patient administered aspirin, nitroglycerin sublingual therapy. Chest Pain: EKG in ED [], CXR w/ [], initial trop []. Will admit to [], place on a monitored bed to assure no acute myocardial infarction with serial cardiac enzymes and EKGs. Patient is able to perform exercise and does not have LBBB or V-pacing but does have history of PCI/ST-T changes with unclear wall motion abnormality at rest thus will proceed with AM nuclear stress test. ASA, NG, morphine. Mag pending. FLP in AM. CAD: Hx STEMI acute inferior [place], s/p PCI-FAYE-Mid Right PLV 03/10/18. 03/10/18 cardiac catheterization w/ totally occluded posterolateral vessel which was angioplastied and stented with a drug-eluting stent a 2.5 x 16 Synergy stent with additionally noted circumflex artery disease, diffuse, approximately 70% in the obtuse marginal branch, LAD and diagonal branch has mild disease. Will continue home regimen asa, brillinta, statin, BB. Hypertension: Continue home regimen including Coreg, isosorbide, PRN hydralazine. Hyperlipidemia: Continue home statin regimen. AM FLP. Tobacco Abuse: Encouraged cessation, inpatient consultation per RT, NR if desired. Obesity: Weight loss and lifestyle changes encouraged. DVT prophylaxis: SCD, Lovenox. Past Medical History Past Medical History (Chronic Problems): Chronic Problems (Last Reviewed 03/16/18 @ 15:50 by Jeromy Traylor MD) Obesity (BMI 30-39.9) (Chronic) HTN (hypertension) (Chronic) HLD (hyperlipidemia) (Chronic) History of coronary artery stent placement (Chronic 03/10/18) PCI-FAYE-Mid Right PLV 03/10/18 STEMI (ST elevation myocardial infarction) (Chronic) Morbid obesity (Chronic) Nicotine dependence (Chronic) Medical History: Medical History (Last Reviewed 03/16/18 @ 15:50 by Jeromy Traylor MD) Atherosclerosis of coronary artery of [place] heart without angina pectoris (Acute) I25.10 PCI-FAYE-Mid Right PLV 03/10/18 Acute inferior myocardial infarction (Acute) I21.19 STEMI (ST elevation myocardial infarction) (Chronic) I21.3 Morbid obesity (Chronic) E66.01 Nicotine dependence (Chronic) F17.200 Allergies No Known Allergies Allergy (Verified 06/06/18 18:12) Home Medications: Ambulatory Orders Medication Instructions Recorded Aspirin E.C. [Ecotrin] 81 mg PO DAILY@0800 tab 03/12/18 atorvastatin 40 mg tablet 40 mg PO QHS #30 tab 03/16/18 carvedilol 6.25 mg tablet 6.25 mg PO BID #60 tab 03/16/18 isosorbide mononitrate ER 30 mg 30 mg PO DAILY #30 tab 07/06/18 tablet,extended release 24 hr ticagrelor 90 mg tablet 90 mg PO BID #60 tab 03/16/18 Surgical History: Surgical History (Last Reviewed 03/16/18 @ 15:50 by Jeromy Traylor MD) History of coronary artery stent placement (Acute) Onset Date: 03/10/18 Z95.5 PCI-FAYE-Mid Right PLV 03/10/18 Surgical History: angioplasty Psychiatric History: No pertinent psych hx Lives: With Family Smoking Status: Current every day smoker Tobacco Use: Cigarettes Alcohol: Occasional Drugs: None - *Family History Maternal Family History: Family History (Last Reviewed 03/16/18 @ 15:50 by Jeromy Traylor MD) Mother CAD (coronary artery disease) Father CAD (coronary artery disease) History Items: Heart Disease - young age Paternal Family History: Family History (Last Reviewed 03/16/18 @ 15:50 by Jeromy Traylor MD) Mother CAD (coronary artery disease) Father CAD (coronary artery disease) History Items: Heart Disease - young age VTE Information - Inpt Only VTE Present on Admission: No VTE Mechan Device Prophylaxis: SCD's VTE Pharm Prophylaxis ordered?: Yes Patient Problems: Active and Suspected Problems (Last Reviewed 03/16/18 @ 15:50 by Jeromy Traylor MD) Chest pain (Acute) - Physical Exam Vital Signs Temp Pulse Resp BP Pulse Ox 97.6 F L 67 18 147/96 H 96 06/06/18 18:10 06/06/18 20:23 06/06/18 20:23 06/06/18 20:23 06/06/18 20:23 Oxygen Delivery Method Room Air Weight: 240 lb Body Mass Index (BMI) 36.5 Laboratory Tests Past 24 Hrs 06/06/18 06/06/18 18:50 18:50 WBC 11.4 H RBC 4.63 Hgb 14.1 Hct 42.2 MCV 91.1 MCH 30.5 MCHC 33.4 RDW 13.0 RDW Differential 43.1 Plt Count 205 MPV 10.8 Immature Gran % (Auto) 0.100 Neut % (Auto) 63.5 Lymph % (Auto) 26.0 [place] % (Auto) 7.8 Eos % (Auto) 2.2 Baso % (Auto) 0.4 Absolute Neuts (auto) 7.2 Absolute Lymphs (auto) 2.96 Total Counted Not Reportable Sodium 138 Potassium 3.7 Chloride 106 Carbon Dioxide 24.0 Anion Gap 8 BUN 15 Creatinine 1.08 Estim Creat Clear Calc 87.96 Est GFR (MDRD) Af Amer 97 Est GFR (MDRD) Non-Af 81 BUN/Creatinine Ratio 13.9 Glucose 91 Calcium 8.8 Troponin I < 0.015 Assessment/Plan All Active Problems (Last Reviewed 03/16/18 @ 15:50 by Jeromy Traylor MD) Chest pain (Acute) Hypertensive emergency (Acute) Atherosclerosis of coronary artery of [place] heart without angina pectoris (Acute) Acute inferior myocardial infarction (Acute)
--- NOTE | 2018-06-06 20:45 | ED.DEP ---
ED Disposition - Plan for ED Patient: Disposition: Against Medical Advice Chief Complaint: Chest Pain Instructions: ED Heart Disease Risk Factors, ED Refusal Of Further Treatment Referrals: Karson Troy MD [Primary Care Provider] - Jeromy Traylor MD [STAFF PHYSICIAN] - As soon as possible Additional Instructions: Please return immediately to the emergency department if you change your mind and would like further workup for your chest pain. You have significant heart disease, and we are concerned that you are having a heart attack. Please continue taking all your medications. Call Dr. Traylor first thing in the morning to arrange a follow-up appointment as soon as possible. If you have any worsening of your condition or any new concerning symptoms, please return immediately to the emergency department for another evaluation.
== END 2018-06-06 20:53 | disposition left against medical advice (07) ==
PROVIDERS: Emergency Provider Emergency Medicine; Family Provider Family Medicine; PCP Family Medicine
DX: R07.9 Chest pain, unspecified (principal); Z53.21 Procedure and treatment not carried out due to patient leaving prior to being seen by health care provider; I25.10 Atherosclerotic heart disease of native coronary artery without angina pectoris; I25.2 Old myocardial infarction; I10 Essential (primary) hypertension; Z95.5 Presence of coronary angioplasty implant and graft; Z79.82 Long term (current) use of aspirin; Z79.899 Other long term (current) drug therapy; Z72.0 Tobacco use
CPT/HCPCS: 71045; 80048; 84484; 85025; 93005; 99285; A4216

== ENCOUNTER → 2018-06-11 06:22 | Outpatient (CLI) | payer OTHER, SELFPAY ==
--- NOTE | 2018-06-11 09:57 | STRESSREP ---
Stress Test Report Exercise myocardial perfusion stress test. 38-year-old male with a history of previous inferior myocardial infarction. Stress protocol: Resting EKG demonstrates normal sinus rhythm with a rate of 75 bpm. The patient exercised according to regular Federico protocol for total duration of 6 minutes attaining a maximum heart rate of 139 bpm which was 77% maximum predicted heart rate the maximum workload was 7 metabolic equivalents. The patient maintained sinus rhythm throughout the recording. At rest there were no ST or T wave changes noted suggest ischemia peak exercise upsloping ST changes only were noted with no meet the criteria for ischemia. No clinical angina was noted the test was terminated due to leg fatigue. Myocardial perfusion protocol. 14.6 mCi of technetium 99m sestamibi was injected at rest. The patient exercised according to regular Federico protocol for 6 minutes at peak exercise 44.8 mCi of technetium 99m sestamibi was injected stress images were obtained stress and rest images were reconstructed and compared in the short axis vertical long and horizontal long axis. Gated images were also obtained per Perfusion SPECT analysis: Review of the stress images demonstrate normal uptake of tracer noted in all areas of the myocardium. The resting images also demonstrated normal uptake of tracer noted in all rest of the myocardium. No areas of reversibility are noted suggest ischemia. No previous infarct is noted. Gated SPECT analysis: The gated ejection fraction is noted to be 60%. Conclusion: Normal exercise myocardial perfusion stress test at a moderate workload. Preserved ejection fraction.
== END ==
PROVIDERS: Family Provider Family Medicine; PCP Family Medicine; Referring Provider Internal Medicine Cardiovascular Disease; Visit Provider Internal Medicine Cardiovascular Disease
DX: I21.09 ST elevation (STEMI) myocardial infarction involving other coronary artery of anterior wall (principal)
CPT/HCPCS: 78452; 93017; A9500; A4216

== ENCOUNTER → 2019-10-08 11:44 | Outpatient (CLI) | payer OTHER, SELFPAY ==
[2019-10-08 08:29] VITALS: BMI 36.3
[2019-10-08 14:28] LABS: AST(SGOT) 19 U/L (15-37); Alanine Aminotransfer ALT/SGPT 49 U/L (16-61); Alkaline Phosphatase 110 U/L (45-117); Cholesterol 190 mg/dL (200); Globulin 3.4 g/dL (2.2-4.2); High Density Lipoprotein 43 mg/dL; Protein, Total 7.4 g/dL (6.4-8.2); Triglycerides 137 mg/dL; Very Low Density Lipoprotein 27 mg/dL (5-40)
== END ==
PROVIDERS: PCP Family Medicine; Referring Provider Internal Medicine Cardiovascular Disease; Visit Provider Internal Medicine Cardiovascular Disease
DX: E78.5 Hyperlipidemia, unspecified (principal)
CPT/HCPCS: 36415; 80061; 80076

== ENCOUNTER → 2020-02-26 10:38 | Outpatient (CLI) | payer OTHER, SELFPAY ==
[2019-10-08 08:29] VITALS: BMI 36.3
== END ==
PROVIDERS: PCP Family Medicine; Visit Provider Otolaryngology
DX: Z11.59 Encounter for screening for other viral diseases (principal)
CPT/HCPCS: 87635; G2023; U0003

== ENCOUNTER → 2021-07-12 11:56 | Outpatient (CLI) | payer OTHER, SELFPAY ==
[2021-07-12 12:31] LABS: Absolute Lymphocyte Count 2.53 X10^3/uL (0.83-4.51); Absolute Neutrophil Count 9.8 X10^3/uL (2.0-7.7); Basophil# 0.07 X10^3/uL; Basophil% 0.5 % (0-1); Eosinophil# 0.25 X10^3/uL; Eosinophils% 1.8 % (0-5); Hematocrit 46.1 % (40-54); Hemoglobin 15.8 g/dL (13.0-16.5); Lymphocyte # 2.53 X10^3/ul (0.83-4.51); Lymphocyte % 18.6 % (19-41); Mean Corp Hgb Conc 34.3 g/dL (32-36); Mean Corpuscular Hgb 32.3 pg (27.0-32.0); Mean Corpuscular Volume 94.3 fL (80-94); Mean Platelet Vol. 10.8 fl (6.2-12.0); Monocyte# 0.87 X10^3/uL; Monocyte% 6.4 % (0-10); NRBC Flagged by Analyzer 0 % (0-5); Neutrophil % 72.2 % (47-70); Platelet Count 206 K/mm3 (150-450); RBC Distribution Width CV 12.8 % (11.6-14.6); RBC Distribution Width SD 44.7 fl (35.1-43.9); Red Blood Count 4.89 M/mm3 (4.6-6.2); White Blood Count 13.6 K/mm3 (4.4-11.0)
[2021-07-12 13:02] LABS: ALB/GLOB Ratio 1.2 RATIO (0.9-2.4); AST(SGOT) 15 U/L (15-37); Alanine Aminotransfer ALT/SGPT 31 U/L (16-61); Albumin, Serum 3.8 g/dL (3.2-5.0); Alkaline Phosphatase 114 U/L (45-117); Anion Gap 4 (5-15); BUN 13 mg/dL (7-18); BUN/Creat Ratio 12.4 RATIO (10-20); Calcium,Total 8.9 mg/dL (8.5-10.1); Chloride 108 mmol/L (98-107); Cholesterol 174 mg/dL (200); Creatinine, Serum 1.05 mg/dL (0.70-1.30); EST Glomerular Filtration Rate 82 mL/min (>60); Est Glom Filt Rate - Afr Amer 99 mL/min (>60); Globulin 3.2 g/dL (2.2-4.2); Glucose 104 mg/dL (74-106); High Density Lipoprotein 44 mg/dL; Potassium 4.4 mmol/L (3.5-5.1); Sodium Level 139 mmol/L (136-145); Triglycerides 81 mg/dL; Very Low Density Lipoprotein 16 mg/dL (5-40)
== END ==
PROVIDERS: PCP Family Medicine; Referring Provider Physician Assistant Medical; Visit Provider Physician Assistant Medical
DX: I25.10 Atherosclerotic heart disease of native coronary artery without angina pectoris (principal); I10 Essential (primary) hypertension; E78.5 Hyperlipidemia, unspecified
CPT/HCPCS: 36415; 80053; 80061; 85025

== ENCOUNTER 2021-08-03 18:18 | Emergency (ER) | payer OTHER, SELFPAY ==
[2021-08-03 18:19] VITALS: BP 121/81; PULSE 80; RESP 20; TEMP 36.8; O2SAT 97; BMI 35.5
--- NOTE | 2021-08-03 18:21 | EKG12_ITS ---
Test Reason : CP Blood Pressure : / mmHG Vent. Rate : 076 BPM Atrial Rate : 076 BPM P-R Int : 182 ms QRS Dur : 088 ms QT Int : 372 ms P-R-T Axes : 044 062 032 degrees QTc Int : 418 ms Normal sinus rhythm Normal ECG Confirmed by POPEYE CHAMBERLAIN, RENAE ([id number]), editor managing newspaper KORI PERDUE ([id number]) on 08/06/2021 7:04:51 AM Referred By: ESPERANZA Confirmed By:RENAE NYE MD
--- NOTE | 2021-08-03 18:22 | RAD_ITS ---
STUDY: X-RAY CHEST REASON FOR EXAM: Male, 41 years old. chest pain TECHNIQUE: AP COMPARISON: 06/06/2018 FINDINGS: The lungs are clear and expanded. There is no demonstrated pleural abnormality. Normal size heart. Normal mediastinum and robel. Normal visualized pulmonary arteries. Normal visualized aortic arch and descending thoracic aorta. Normal visualized thoracic spine. Normal visualized ribs, clavicles, and shoulders. There is no demonstrated abnormality of the visualized soft tissue structures of the upper abdomen. RAD/Chest 1 View (Portable) IMPRESSION: Nonacute portable x-ray examination of the chest. Electronically Signed: Konstantin Husain MD ([place]oks) at 18:33 EST , Service support ,
--- NOTE | 2021-08-03 19:30 | ED.RN ---
PATIENT CALLED BACK AND TOLD STAFF HE IS FEELING ABOUT BETTER AND DOES NOT WANT TO BE SEEN
== END 2021-08-03 19:14 | disposition left against medical advice (07) ==
LOC: ED 19:50
PROVIDERS: PCP Family Medicine
DX: R07.9 Chest pain, unspecified (principal)
CPT/HCPCS: 71045; 93005

== ENCOUNTER 2022-04-11 15:04 | Emergency (ER) | payer OTHER, SELFPAY ==
[2022-04-11 15:04] VITALS: BP 117/95; PULSE 104; RESP 16; TEMP 36.4; O2SAT 95; BMI 33.3
--- NOTE | 2022-04-11 15:20 | EKG12_ITS ---
Test Reason : cp Blood Pressure : / mmHG Vent. Rate : 089 BPM Atrial Rate : 089 BPM P-R Int : 172 ms QRS Dur : 084 ms QT Int : 346 ms P-R-T Axes : 063 070 065 degrees QTc Int : 420 ms Normal sinus rhythm Normal ECG Confirmed by POPEYE CHAMBERLAIN, RENAE ([id number]), editor managing newspaper KORI PERDUE ([id number]) on 04/12/2022 1:12:36 PM Referred By: Confirmed By:RENAE NYE MD
[2022-04-11 15:21] VITALS: O2SAT 94
[2022-04-11] MEDS: Aspirin 81 MG TAB.CHEW 324 MG PO (15:27)
--- NOTE | 2022-04-11 15:30 | RAD_ITS ---
EXAM: XR CHEST, 1 VIEW CLINICAL INDICATION: chest pain TECHNIQUE: Frontal view of the chest. This report was created using [employer] report generation technology. COMPARISON: XR Chest dated august 03 2021 FINDINGS: LUNGS AND PLEURAL SPACES: Normal. No consolidation or edema. No pneumothorax. No effusion. HEART: Normal heart size. MEDIASTINUM: Central airways and mediastinal contour are unremarkable. BONES/JOINTS: Normal. SOFT TISSUES: Normal. RAD/Chest 1 View (Portable) IMPRESSION: No acute cardiopulmonary disease. No interval change. Electronically Signed: Ford Trotter MD at 15:48 EDT ,
[2022-04-11 15:32] LABS: Absolute Neutrophil Count 5.6 X10^3/uL (2.0-7.7); Basophil# 0.04 X10^3/uL; Basophil% 0.5 % (0-1); Eosinophil# 0.01 X10^3/uL; Eosinophils% 0.1 % (0-5); Hematocrit 46.2 % (40-54); Hemoglobin 16.2 g/dL (13.0-16.5); Lymphocyte % 16.1 % (19-41); Mean Corp Hgb Conc 35.1 g/dL (32-36); Mean Corpuscular Hgb 32.4 pg (27.0-32.0); Mean Corpuscular Volume 92.4 fL (80-94); Mean Platelet Vol. 10.7 fl (6.2-12.0); Monocyte# 1.15 X10^3/uL; Monocyte% 14.3 % (0-10); NRBC Flagged by Analyzer 0 % (0-5); Neutrophil # 5.55 X10^3/uL (2.7-7.7); Neutrophil % 68.8 % (47-70); Platelet Count 148 K/mm3 (150-450); RBC Distribution Width CV 13.2 % (11.6-14.6); RBC Distribution Width SD 45.1 fl (35.1-43.9); White Blood Count 8.1 K/mm3 (4.4-11.0)
[2022-04-11 15:50] LABS: Anion Gap 7 (5-15); BUN 17 mg/dL (7-18); BUN/Creat Ratio 13.4 RATIO (10-20); Calcium,Total 9.3 mg/dL (8.5-10.1); Chloride 105 mmol/L (98-107); Creatinine, Serum 1.27 mg/dL (0.70-1.30); EST Glomerular Filtration Rate 66 mL/min (>60); Est Glom Filt Rate - Afr Amer 79 mL/min (>60); Glucose 125 mg/dL (74-106); Potassium 3.8 mmol/L (3.5-5.1); Sodium Level 133 mmol/L (136-145); Troponin-I HS (w/2H Reflex) 10 pg/mL (3.0-78.0)
--- NOTE | 2022-04-11 15:55 | CT_ITS ---
EXAM: CT ANGIOGRAPHY CHEST WITHOUT AND WITH INTRAVENOUS CONTRAST CLINICAL INDICATION: chest pain TECHNIQUE: Helically acquired angiography images were obtained of the chest without and with intravenous contrast. This CT exam was performed using one or more of the following dose reduction techniques: automated exposure control, adjustment of the mA and/or kV according to patient size, and/or use of iterative reconstruction technique. This report was created using [employer] report generation technology. MIP reconstructed images were created and reviewed. CONTRAST: IV 100mL Isovue-370 COMPARISON: None. FINDINGS: PULMONARY ARTERIES: Normal. Normal in caliber. No evidence of pulmonary embolism. AORTA: Normal. Normal in caliber. No evidence of dissection. GREAT VESSELS OF AORTIC ARCH: Normal. Normal in caliber. No evidence of dissection. LUNGS AND PLEURAL SPACES: Normal. No mass. No consolidation or edema. No pleural effusion or thickening. No pneumothorax. HEART: Normal. Heart size is normal. No pericardial effusion. No signs of right heart strain, ratio of right ventricle to left ventricle measures less than 1. MEDIASTINUM: Normal. No mediastinal or hilar adenopathy. Esophagus is unremarkable. No hiatal hernia. THYROID: Normal. No thyroid lesions. BONES/JOINTS: Normal. No suspicious lytic or blastic abnormality. CT/CTA Chest W/WO Contrast IMPRESSION: Normal CTA chest. Electronically Signed: Ford Trotter MD at 16:41 EDT ,
[2022-04-11 16:00] VITALS: BP 118/82; PULSE 81; RESP 17; O2SAT 94
--- NOTE | 2022-04-11 16:22 | ED.VIS.CHEST ---
HPI History of Present Illness Chief Complaint: Chest Pain Narrative Narrative: 41-year-old male presenting with chest pain. He is a current smoker and had a cigarette before coming into the emergency room. He has a history of CAD, hypertension, hyperlipidemia, cardiac stents. Patient states onset of his chest pain was yesterday and is retrosternal and pressure-like. He radiates to the left arm. He states he has been having episodes of sweating. He states he feels unwell. He is not had a fever, chills. Denies headache. He states he is not short of breath. He has a smoker's cough with no change. Patient does report that his pain has been constant since yesterday morning. He is not lightheaded or dizzy. [facility] Medical History Atherosclerosis of coronary artery of [place] heart without angina pectoris Essential (primary) hypertension History of ST elevation myocardial infarction (STEMI) (03/10/18) HLD (hyperlipidemia) Nicotine dependence Obesity (BMI 30-39.9) Old inferior wall myocardial infarction Home Medications aspirin 81 mg tablet,delayed release 81 mg PO DAILY@0800 03/12/18 [Rx Last Taken 06/06/18] acetaminophen 325 mg tablet 650 mg PO ONCE 11/04/20 [History Last Taken Unknown] lisinopril 10 mg tablet 10 mg PO DAILY #90 tabs 07/12/21 [Rx Last Taken Unknown] carvedilol 3.125 mg tablet 3.125 mg PO BID #180 tabs 02/11/22 [Rx Last Taken Unknown] atorvastatin 40 mg tablet 40 mg PO DAILY #90 tabs 03/18/22 [Rx Last Taken Unknown] ticagrelor 90 mg tablet (Brilinta) 90 mg PO BID #180 tabs 03/18/22 [Rx Last Taken Unknown] Allergy/AdvReac Type Severity Reaction Status Date / Time No Known Allergies Allergy Verified 07/12/21 11:29 Family History Mother CAD (coronary artery disease) Father CAD (coronary artery disease) Surgical History History of coronary artery stent placement (03/10/18) Social History Smoking Status: Current every day smoker tobacco type: cigarettes alcohol intake: current alcohol intake frequency: a few times a week substance use type: does not use caffeine: Yes Type: carbonated beverages Number of servings: 6 and other Number of servings: 1 ROS ROS ED Constitutional Constitutional ED: Denies chills or fever(s) Eyes Eyes: Denies blurry vision or change in vision ENT ENT ED: Denies rhinorrhea or sore throat Cardiovascular Cardiovascular: Reports as per HPI Respiratory/Chest Respiratory/Chest: Denies cough or dyspnea Gastrointestinal Gastrointestinal: Denies abdominal pain or constipation Genitourinary Genitourinary ED: Denies dysuria or hematuria Musculoskeletal Musculoskeletal: Denies arthralgias or back pain Integumentary Denies abscess Neurologic Neurologic: Denies headache(s) or paresthesias Psychiatric Psychiatric: Denies anxiety or depression EXAM Physical Exam Const Vital Signs: 04/11/22 15:04 04/11/22 15:21 04/11/22 16:00 Temperature 97.6 F L Temperature Source Temporal Pulse Rate 104 H 81 Respiratory Rate 16 17 Blood Pressure 117/95 H 118/82 H Blood Pressure Mean 102 94 Pulse Ox 95 94 94 Oxygen Delivery Method Room Air Room Air Room Air 04/11/22 17:00 Temperature Temperature Source Pulse Rate 76 Respiratory Rate 30 H Blood Pressure 146/88 H Blood Pressure Mean 107 Pulse Ox 95 Oxygen Delivery Method Room Air Positive well nourished General Appearance ED: NAD; Negative for pallor HEENT Reports moist mucous membranes HEENT Narrative: Percussion tenderness to right lower premolar. Focal dental decay. No gingival swelling or drainage. No sublingual edema. Tongue is normal. No stridor. No submandibular fullness. Neck supple without lymphadenopathy. Eyes PERRL Neck no lymphadenopathy Chest Wall inspection of chest normal Resp normal respiratory effort and clear to auscultation bilaterally Auscultation: Negative for rales, rhonchi or wheezes Cardio regular rhythm Rate: tachycardic GI normal to inspection, nondistended, normoactive bowel sounds Extremity General Extremety ED: Negative for edema or pulses abnormal General Extremity: Negative for edema or pulses abnormal Neuro oriented x3 and CN's II-XII intact bilaterally Sensorium / Orientation: awake Motor Exam: strength 5/5 throughout Psych mental status grossly normal Skin General Skin Exam: Negative for jaundice or pallor Heart Score History: Slightly/Non-Suspicious ECG: Normal Age: </= 45 years Risk Factors: >/= 3 Risk Factors or History of CAD Troponin: </= Normal Limit Score: 2 MDM MDM MDM Narrative Medical decision making narrative: 41-year-old male presenting with chest pain. He does have a history of hypertension, hyperlipidemia, CAD, cardiac stent. He is a current every day smoker. EKG is sinus rhythm with a ventricular rate of 89 bpm without sign of ischemic change or dysrhythmia on my interpretation. Chest x-ray on my interpretation shows no acute cardiopulmonary process and radiologist agree. White count is 8.1. Hemoglobin 16.2, platelets 148. Platelets previously 206. Renal function is normal. Sodium slightly at 133. High-sensitivity troponin is 10. D-dimer returned elevated at 0.90. Will obtain a CTA of the chest. Patient was given aspirin 324 mg on arrival. I will test him for COVID as well. COVID test returned positive. CT of the chest negative for PE or dissection. There is no new infiltrate. Patient ambulated without oxygen on pulse ox and maintain sats at 96%. He is offered Paxlovid, but declines. Delta troponin was 9. There is no significant interval change. At this point I feel the patient is stable for discharge home. He request a work note. This was provided. Return precautions discussed. Impression: 1. Chest pain 2. Tachycardia?resolved 3. COVID-19 Lab Data Attestation: I reviewed the patient's lab results. Labs: Laboratory Results - last 24 hr 04/11/22 04/11/22 04/11/22 15:20 15:20 15:20 WBC 8.1 RBC 5.00 Hgb 16.2 Hct 46.2 MCV 92.4 MCH 32.4 H MCHC 35.1 RDW Std Deviation 45.1 H RDW Coeff of [place] 13.2 Plt Count 148 L MPV 10.7 Immature Gran % (Auto) 0.200 Neut % (Auto) 68.8 Lymph % (Auto) 16.1 L [place] % (Auto) 14.3 H Eos % (Auto) 0.1 Baso % (Auto) 0.5 Absolute Neuts (auto) 5.6 Absolute Lymphs (auto) 1.30 Nucleated RBC % 0 D-Dimer Quant (PE/DVT) 0.90 H* Sodium 133 L Potassium 3.8 Chloride 105 Carbon Dioxide 21.0 Anion Gap 7 BUN 17 Creatinine 1.27 Estim Creat Clear Calc 75.00 Est GFR (MDRD) Af Amer 79 Est GFR (MDRD) Non-Af 66 BUN/Creatinine Ratio 13.4 Glucose 125 H Calcium 9.3 Troponin I High Sens 10 04/11/22 17:30 WBC RBC Hgb Hct MCV MCH MCHC RDW Std Deviation RDW Coeff of [place] Plt Count MPV Immature Gran % (Auto) Neut % (Auto) Lymph % (Auto) [place] % (Auto) Eos % (Auto) Baso % (Auto) Absolute Neuts (auto) Absolute Lymphs (auto) Nucleated RBC % D-Dimer Quant (PE/DVT) Sodium Potassium Chloride Carbon Dioxide Anion Gap BUN Creatinine Estim Creat Clear Calc Est GFR (MDRD) Af Amer Est GFR (MDRD) Non-Af BUN/Creatinine Ratio Glucose Calcium Troponin I High Sens 9 Radiography Diagnostic Testing: Clinical Impression(s) from Imaging Studies Chest X-Ray 04/11/22 15:30 IMPRESSION: No acute cardiopulmonary disease. No interval change. Electronically Signed: Ford Trotter MD at 15:48 EDT , Chest CTA 04/11/22 15:55 IMPRESSION: Normal CTA chest. Electronically Signed: Ford Trotter MD at 16:41 EDT , Discharge Plan Triage Chief Complaint: Chest Pain ED Provider: Nolberto Sepulveda Dx/Rx/DC Orders Instructions: Coronavirus Disease 2019 (COVID-19): Caring for Yourself or Others, ED Chest Pain, Noncardiac Prescriptions: No Action acetaminophen 325 mg tablet 650 mg PO ONCE lisinopril 10 mg tablet 10 mg PO DAILY Qty: 90 3RF aspirin 81 MG tablet 81 mg PO DAILY@0800 0RF carvedilol 3.125 mg tablet 3.125 mg PO BID Qty: 180 3RF Brilinta 90 mg tablet 90 mg PO BID Qty: 180 3RF atorvastatin 40 mg tablet 40 mg PO DAILY Qty: 90 3RF Stand Alone Forms: ED Work / School Excuse Primary Care Provider: Marek Vargas Referrals: Marek Vargas MD [Primary Care Provider] - Disposition Disposition: Home, Self Care
[2022-04-11 17:00] VITALS: BP 146/88; PULSE 76; RESP 30; O2SAT 95
[2022-04-11 17:17] VITALS: O2SAT 96
[2022-04-11 17:25] LABS: Reflex Troponin-HS? (from REC) Y
[2022-04-11 18:13] LABS: Troponin-I HS 9 pg/mL (3.0-78.0)
[2022-04-11 18:38] VITALS: BP 143/79; PULSE 71; RESP 27; O2SAT 96
== END 2022-04-11 18:41 | disposition home or self-care (01) ==
PROVIDERS: Emergency Provider Student in an Organized Health Care Education/Training Program; PCP Family Medicine; Visit Provider Student in an Organized Health Care Education/Training Program
DX: U07.1 COVID-19 (principal); E78.5 Hyperlipidemia, unspecified; I25.10 Atherosclerotic heart disease of native coronary artery without angina pectoris; I10 Essential (primary) hypertension; F17.210 Nicotine dependence, cigarettes, uncomplicated; I25.2 Old myocardial infarction; E66.9 Obesity, unspecified; Z79.82 Long term (current) use of aspirin; Z79.899 Other long term (current) drug therapy; Z95.5 Presence of coronary angioplasty implant and graft; Z68.33 Body mass index [BMI] 33.0-33.9, adult
CPT/HCPCS: 71045; 71275; 80048; 84484; 85025; 85379; 87811; 93005; 99283; Q9967; A4216

== ENCOUNTER 2022-06-13 16:39 | Emergency (ER) | payer OTHER, SELFPAY ==
[2022-06-13 16:42] VITALS: BP 124/82; PULSE 114; RESP 18; TEMP 36.9; O2SAT 98; BMI 34.8
[2022-06-13 16:44] VITALS: BP 124/82; PULSE 107; RESP 23; O2SAT 97
--- NOTE | 2022-06-13 17:28 | EKG12_ITS ---
Test Reason : CP Blood Pressure : / mmHG Vent. Rate : 102 BPM Atrial Rate : 102 BPM P-R Int : 152 ms QRS Dur : 088 ms QT Int : 326 ms P-R-T Axes : 051 075 061 degrees QTc Int : 424 ms Sinus tachycardia Otherwise normal ECG Confirmed by DELFINO CHAMBERLAIN, SOHA ([id number]), visual effects editor KORI PERDUE ([id number]) on 06/15/2022 9:23:39 AM Referred By: DEEDEE Confirmed By:SOHA SALEH MD
[2022-06-13 17:38] VITALS: O2SAT 96
[2022-06-13] MEDS: Aspirin 81 MG TAB.CHEW 324 MG PO (17:39)
[2022-06-13 17:41] VITALS: BP 107/60; PULSE 88; RESP 16; O2SAT 97
[2022-06-13 17:44] LABS: Absolute Neutrophil Count 12.9 X10^3/uL (2.0-7.7); Basophil# 0.09 X10^3/uL; Basophil% 0.5 % (0-1); Eosinophil# 0.26 X10^3/uL; Eosinophils% 1.6 % (0-5); Hematocrit 46.2 % (40-54); Hemoglobin 15.7 g/dL (13.0-16.5); Lymphocyte % 14.3 % (19-41); Mean Corpuscular Hgb 32.4 pg (27.0-32.0); Mean Corpuscular Volume 95.3 fL (80-94); Mean Platelet Vol. 10.7 fl (6.2-12.0); Monocyte# 1.01 X10^3/uL; NRBC Flagged by Analyzer 0 % (0-5); Neutrophil # 12.91 X10^3/uL (2.7-7.7); Neutrophil % 77.2 % (47-70); Platelet Count 226 K/mm3 (150-450); RBC Distribution Width CV 12.8 % (11.6-14.6); RBC Distribution Width SD 44.9 fl (35.1-43.9); Red Blood Count 4.85 M/mm3 (4.6-6.2); White Blood Count 16.7 K/mm3 (4.4-11.0)
--- NOTE | 2022-06-13 17:50 | RAD_ITS ---
STUDY: X-RAY CHEST REASON FOR EXAM: Male, 42 years old. Chest pain TECHNIQUE: Single AP portable view of the chest. COMPARISON: April 11, 2022 FINDINGS: The lungs are clear and expanded. There is no demonstrated pleural abnormality. Normal size heart. Normal mediastinum and robel. Normal visualized pulmonary arteries. Normal visualized aortic arch and descending thoracic aorta. Normal visualized thoracic spine. Normal visualized ribs, clavicles, and shoulders. There is no demonstrated abnormality of the visualized soft tissue structures of the upper abdomen. RAD/Chest 1 View (Portable) IMPRESSION: Normal x-ray examination of the chest. Electronically Signed: Aureliano Anderson MD at 18:25 EDT ,
[2022-06-13 17:57] LABS: Anion Gap 8 (5-15); BUN 14 mg/dL (7-18); BUN/Creat Ratio 10.1 RATIO (10-20); Chloride 109 mmol/L (98-107); Creatinine, Serum 1.38 mg/dL (0.70-1.30); EST Glomerular Filtration Rate 60 mL/min (>60); Est Glom Filt Rate - Afr Amer 72 mL/min (>60); Estimated Creatinine Clearance 68.31 ml/min; Glucose 176 mg/dL (74-106); Sodium Level 141 mmol/L (136-145); Troponin-I HS (w/2H Reflex) 4 pg/mL (3.0-78.0)
[2022-06-13 19:09] VITALS: BP 106/69; PULSE 89; RESP 28; O2SAT 97
--- NOTE | 2022-06-13 19:14 | ED.RN ---
PT WAS UPSET THAT E.D. PHYSICIAN HAS NOT BEEN IN TO GIVE PT RESULTS OF TESTS TAKE THIS STUFF OFF I'M LEAVING PT AGAIN STATED TAKE IT OFF NOW THIS NURSE D/C'D THE CAT WAGON OPERATOR AND SL. DR. RODRÍGUEZ INFORMED OF SAME.
--- NOTE | 2022-06-13 19:23 | EDS_ITS ---
HPI History of Present Illness Chief Complaint: Chest Pain Narrative Narrative: 42-year-old male presenting with right-sided chest pain which started about 230 today. He describes it as sharp and heavy. He radiates into the right shoulder. He states he initially felt some shortness of breath but this is resolved. His chest pain is also resolving. No fever, chills, cough. He states that about 4 years ago he had an PR. He does not recall having any chest pain for this. The patient states that a coworker called because he did not look good. He was diagnosed with PR. He has one cardiac stent. He has hypertension, hyperlipidemia. He has been taking all of his medications. He is currently on aspirin and Brilinta as well. He follows with Dr. Traylor. No history of DVT/PE. [facility] Medical History Atherosclerosis of coronary artery of [place] heart without angina pectoris Essential (primary) hypertension History of ST elevation myocardial infarction (STEMI) (03/10/18) HLD (hyperlipidemia) Nicotine dependence Obesity (BMI 30-39.9) Old inferior wall myocardial infarction Home Medications aspirin 81 mg tablet,delayed release 81 mg PO DAILY@0800 03/12/18 [Rx Last Taken 06/06/18] acetaminophen 325 mg tablet 650 mg PO ONCE 11/04/20 [History Last Taken Unknown] lisinopril 10 mg tablet 10 mg PO DAILY #90 tabs 07/12/21 [Rx Last Taken Unknown] carvedilol 3.125 mg tablet 3.125 mg PO BID #180 tabs 02/11/22 [Rx Last Taken Unknown] atorvastatin 40 mg tablet 40 mg PO DAILY #90 tabs 03/18/22 [Rx Last Taken Unknown] ticagrelor 90 mg tablet (Brilinta) 90 mg PO BID #180 tabs 03/18/22 [Rx Last Taken Unknown] Allergy/AdvReac Type Severity Reaction Status Date / Time No Known Allergies Allergy Verified 06/13/22 16:42 Family History Mother CAD (coronary artery disease) Father CAD (coronary artery disease) Surgical History History of coronary artery stent placement (03/10/18) Social History Smoking Status: Current every day smoker tobacco type: cigarettes alcohol intake: current alcohol intake frequency: a few times a week substance use type: does not use caffeine: Yes Type: carbonated beverages Number of servings: 6 and other Number of servings: 1 ROS ROS ED Constitutional Constitutional ED: Denies chills or fever(s) Eyes Eyes: Denies blurry vision or change in vision ENT ENT ED: Denies rhinorrhea or sore throat Cardiovascular Cardiovascular: Reports as per HPI Respiratory/Chest Respiratory/Chest: Reports dyspnea; Denies cough Gastrointestinal Gastrointestinal: Denies abdominal pain or constipation Genitourinary Genitourinary ED: Denies dysuria or hematuria Musculoskeletal Musculoskeletal: Denies arthralgias or back pain Integumentary Denies abscess or Abrasions Neurologic Neurologic: Denies headache(s) or paresthesias Psychiatric Psychiatric: Denies anxiety or depression EXAM Physical Exam Const Vital Signs: 06/13/22 16:42 06/13/22 16:44 06/13/22 16:44 Temperature 98.4 F Temperature Source Axillary Pulse Rate 114 H 107 H Respiratory Rate 18 23 H Respiratory Effort Normal Blood Pressure 124/82 H 124/82 H Blood Pressure Mean 96 96 Pulse Ox 98 97 Oxygen Delivery Method Room Air Room Air 06/13/22 17:38 06/13/22 17:41 06/13/22 19:09 Temperature Temperature Source Pulse Rate 88 89 Respiratory Rate 16 28 H Respiratory Effort Blood Pressure 107/60 106/69 Blood Pressure Mean 75 81 Pulse Ox 96 97 97 Oxygen Delivery Method Room Air Room Air Room Air Positive well nourished General Appearance ED: NAD; Negative for pallor HEENT Reports TM's clear and moist mucous membranes normocephalic and atraumatic Tympanic Membrane ED: Yes TM's clear Eyes PERRL Chest Wall Chest Narrative: Tenderness to palpation to the right pectoralis muscle. No bruising, crepitance. Equal symmetric chest wall rise and breath sounds Cardio regular rate and regular rhythm GI normal to inspection, nondistended, normoactive bowel sounds Neuro oriented x3 and CN's II-XII intact bilaterally Sensorium / Orientation: awake Psych Attitude: agitated Skin General Skin Exam: Negative for jaundice or pallor Heart Score History: Slightly/Non-Suspicious ECG: Normal Age: </= 45 years Risk Factors: >/= 3 Risk Factors or History of CAD Troponin: </= Normal Limit Score: 2 MDM MDM MDM Narrative Medical decision making narrative: Patient presenting with chest pain. Protocol orders were placed as the patient arrived. There was a delay in care as the patient was here during a heavy volume day in the emergency room. As I entered the room he was very agitated and stated that he did not want to stay anymore. He states that his chest pain had started to improve and he had some shortness of breath earlier which had resolved. He did allow me to examine him and his lungs are clear to auscultation. At this point his shortness of breath has resolved. His tachycardia of 114 is now 89. He does have some tenderness to palpation of the right pectoralis muscle where he is complaining of pain. I did offer him some pain medication but at this point he states he does not want anything. Initial EKG showed a sinus tachycardia with a ventricular rate of 102 bpm without signs of ischemic change or dysrhythmia. Blood work showed he has a slight leukocytosis of 16.7, hemoglobin hematocrit are normal. Platelets 226. Creatinine slightly elevated 1.38. High-sensitivity troponin was 4. Patient states he does not want to stay for a delta troponin. He states he feels improved. I did offer him something for pain for home he declines. His chest x-ray interpreted by myself shows no acute cardiopulmonary process. Radiologist agree. At this point the patient's work-up is ultimately normal and he does not want to stay for a delta troponin. His heart score is 2. I have low suspicion for a PE causing his pain. Patient states he will follow-up with Dr. Hall for an outpatient basis. Impression: 1. Chest pain resolved 2. Shortness of breath resolved Lab Data Attestation: I reviewed the patient's lab results. Labs: Laboratory Results - last 24 hr 06/13/22 06/13/22 16:45 16:45 WBC 16.7 H RBC 4.85 Hgb 15.7 Hct 46.2 MCV 95.3 H MCH 32.4 H MCHC 34.0 RDW Std Deviation 44.9 H RDW Coeff of Emili 12.8 Plt Count 226 MPV 10.7 Immature Gran % (Auto) 0.400 Neut % (Auto) 77.2 H Lymph % (Auto) 14.3 L Bertie % (Auto) 6.0 Eos % (Auto) 1.6 Baso % (Auto) 0.5 Absolute Neuts (auto) 12.9 H Absolute Lymphs (auto) 2.40 Nucleated RBC % 0 Sodium 141 Potassium 4.0 Chloride 109 H Carbon Dioxide 24.0 Anion Gap 8 BUN 14 Creatinine 1.38 H Estim Creat Clear Calc 68.31 Est GFR (MDRD) Af Amer 72 Est GFR (MDRD) Non-Af 60 BUN/Creatinine Ratio 10.1 Glucose 176 H Calcium 9.0 Troponin I High Sens 4 Radiography Diagnostic Testing: Clinical Impression(s) from Imaging Studies Chest X-Ray 06/13/22 17:50 IMPRESSION: Normal x-ray examination of the chest. Electronically Signed: Aureliano Anderson MD at 18:25 EDT , Discharge Plan Triage Chief Complaint: Chest Pain ED Provider: Nolberto Sepulveda Dx/Rx/DC Orders Prescriptions: No Action acetaminophen 325 mg tablet 650 mg PO ONCE lisinopril 10 mg tablet 10 mg PO DAILY Qty: 90 3RF aspirin 81 MG tablet 81 mg PO DAILY@0800 0RF carvedilol 3.125 mg tablet 3.125 mg PO BID Qty: 180 3RF Brilinta 90 mg tablet 90 mg PO BID Qty: 180 3RF atorvastatin 40 mg tablet 40 mg PO DAILY Qty: 90 3RF Primary Care Provider: Marek Vargas Referrals: Marek Vargas MD [Primary Care Provider] - Disposition Disposition: Against Medical Advice Discharge Date/Time: 06/13/22 19:21
[2022-06-13 19:35] LABS: Reflex Troponin-HS? (from REC) Y
== END 2022-06-13 19:21 | disposition left against medical advice (07) ==
LOC: ED 18:09
PROVIDERS: Emergency Provider Student in an Organized Health Care Education/Training Program; PCP Family Medicine; Visit Provider Student in an Organized Health Care Education/Training Program
DX: R07.9 Chest pain, unspecified (principal); I25.10 Atherosclerotic heart disease of native coronary artery without angina pectoris; F17.210 Nicotine dependence, cigarettes, uncomplicated; E78.5 Hyperlipidemia, unspecified; I10 Essential (primary) hypertension; Z79.82 Long term (current) use of aspirin; Z79.899 Other long term (current) drug therapy
CPT/HCPCS: 71045; 80048; 84484; 85025; 93005; 99284; A4216

== ENCOUNTER → 2023-09-12 | Outpatient (CLI) | payer OTHER, SELFPAY ==
[2023-09-12 11:23] LABS: Absolute Lymphocyte Count 2.33 X10^3/uL (0.83-4.51); Absolute Neutrophil Count 8.6 X10^3/uL (2.0-7.7); Basophil# 0.11 X10^3/uL; Basophil% 0.9 % (0-1); Eosinophil# 0.27 X10^3/uL; Eosinophils% 2.2 % (0-5); Hematocrit 52.2 % (40-54); Hemoglobin 17.4 g/dL (13.0-16.5); Lymphocyte # 2.33 X10^3/ul (0.83-4.51); Lymphocyte % 18.7 % (19-41); Mean Corp Hgb Conc 33.3 g/dL (32-36); Mean Corpuscular Hgb 30.7 pg (27.0-32.0); Mean Corpuscular Volume 92.2 fL (80-94); Mean Platelet Vol. 11.6 fl (6.2-12.0); Monocyte# 1.07 X10^3/uL; Monocyte% 8.6 % (0-10); NRBC Flagged by Analyzer 0 % (0-5); Neutrophil # 8.61 X10^3/uL (2.7-7.7); Neutrophil % 69.1 % (47-70); Platelet Count 204 K/mm3 (150-450); RBC Distribution Width CV 12.1 % (11.6-14.6); RBC Distribution Width SD 41.3 fl (35.1-43.9); Red Blood Count 5.66 M/mm3 (4.6-6.2); White Blood Count 12.5 K/mm3 (4.4-11.0)
[2023-09-12 11:55] LABS: AST(SGOT) 10 U/L (15-37); Alanine Aminotransfer ALT/SGPT 22 U/L (16-61); Albumin, Serum 3.7 g/dL (3.2-5.0); Alkaline Phosphatase 196 U/L (45-117); Anion Gap 9 (5-15); BUN 10 mg/dL (7-18); BUN/Creat Ratio 9.3 RATIO (10-20); Calcium,Total 8.9 mg/dL (8.5-10.1); Chloride 98 mmol/L (98-107); Cholesterol 211 mg/dL (200); Creatinine, Serum 1.07 mg/dL (0.70-1.30); EST Glomerular Filtration Rate 79 mL/min (>60); Est Glom Filt Rate - Afr Amer 96 mL/min (>60); Globulin 3.6 g/dL (2.2-4.2); Glucose 400 mg/dL (74-106); High Density Lipoprotein 32 mg/dL; Potassium 3.8 mmol/L (3.5-5.1); Protein, Total 7.3 g/dL (6.4-8.2); Sodium Level 133 mmol/L (136-145); Triglycerides 250 mg/dL; Very Low Density Lipoprotein 50 mg/dL (5-40)
[2023-09-12 15:49] LABS: Hemoglobin A1c 11.4 % (3.8-5.6)
== END | disposition home or self-care (01) ==
PROVIDERS: PCP Family Medicine; Referring Provider Physician Assistant Medical; Visit Provider Physician Assistant Medical
DX: I25.10 Atherosclerotic heart disease of native coronary artery without angina pectoris (principal); I10 Essential (primary) hypertension; E78.5 Hyperlipidemia, unspecified; Z95.5 Presence of coronary angioplasty implant and graft; R73.09 Other abnormal glucose; K92.1 Melena
CPT/HCPCS: 36415; 80053; 80061; 83036; 85025

== ENCOUNTER → 2025-01-14 | Outpatient (CLI) | payer OTHER, SELFPAY ==
[2025-01-14 12:15] LABS: Absolute Lymphocyte Count 2.84 X10^3/uL (0.83-4.51); Absolute Neutrophil Count 9.9 X10^3/uL (2.0-7.7); Basophil# 0.11 X10^3/uL; Basophil% 0.8 % (0-1); Eosinophils% 2.1 % (0-5); Hematocrit 48.1 % (40-54); Hemoglobin 16.4 g/dL (13.0-16.5); Lymphocyte # 2.84 X10^3/ul (0.83-4.51); Lymphocyte % 20.1 % (19-41); Mean Corp Hgb Conc 34.1 g/dL (32-36); Mean Corpuscular Hgb 31.1 pg (27.0-32.0); Mean Corpuscular Volume 91.3 fL (80-94); Mean Platelet Vol. 11.3 fl (6.2-12.0); Monocyte# 0.91 X10^3/uL; Monocyte% 6.4 % (0-10); NRBC Flagged by Analyzer 0 % (0-5); Neutrophil # 9.94 X10^3/uL (2.7-7.7); Neutrophil % 70.2 % (47-70); Platelet Count 209 K/mm3 (150-450); RBC Distribution Width CV 12.3 % (11.6-14.6); Red Blood Count 5.27 M/mm3 (4.6-6.2); White Blood Count 14.2 K/mm3 (4.4-11.0)
[2025-01-14 12:48] LABS: Hemoglobin A1c 13.1 % (<=5.6)
[2025-01-14 13:09] LABS: ALB/GLOB Ratio 1.6 RATIO (0.9-2.4); AST(SGOT) 12 U/L (<=37); Alanine Aminotransfer ALT/SGPT 24 U/L (<=46); Albumin, Serum 4.2 g/dL (3.5-5.0); Alkaline Phosphatase 157 U/L (40-129); Anion Gap 11 (5-15); BUN 8 mg/dL (4-19); Calcium,Total 9.1 mg/dL (7.6-11.0); Carbon Dioxide 23.4 mmol/L (21.0-32.0); Chloride 101 mmol/L (98-108); Cholesterol 175 mg/dL (<=200); Creatinine, Serum 0.79 mg/dL (0.70-1.20); EST Glomerular Filtration Rate 111 (>60); Globulin 2.6 g/dL (2.2-4.2); Glucose 284 mg/dL (70-99); High Density Lipoprotein 33 mg/dL; Low Density Lipoprotein Calc. 112 mg/dL; Potassium 4.5 mmol/L (3.3-5.1); Protein, Total 6.8 g/dL (5.9-8.4); Sodium Level 135 mmol/L (133-145); Total Bilirubin 0.52 mg/dL (0.00-1.30); Triglycerides 147 mg/dL; Very Low Density Lipoprotein 29 mg/dL (5-40); cholesterol:hdl ratio screen 5.27
== END | disposition home or self-care (01) ==
LOC: LAB 10:39
PROVIDERS: PCP Family Medicine; Referring Provider Physician Assistant Medical; Visit Provider Physician Assistant Medical
DX: Z95.5 Presence of coronary angioplasty implant and graft (principal); I25.10 Atherosclerotic heart disease of native coronary artery without angina pectoris; I10 Essential (primary) hypertension; E78.5 Hyperlipidemia, unspecified
CPT/HCPCS: 36415; 80053; 80061; 83036; 85025